=== PATIENT | female | born 1990 | race Caucasian/White ===

== ENCOUNTER 2023-09-01 15:16 | Emergency (ER) | payer MEDICARE, OTHER ==
[2023-09-01 15:35] VITALS: RESP 18
--- NOTE | 2023-09-01 16:09 | ED ---
Extremity Problem HPI - General Source: patient, RN notes reviewed Mode of arrival: wheelchair Limitations: no limitations - History of Present Illness MD Complaint: extremity pain, extremity swelling <Maryanne Flor - Last Filed: 09/01/23 16:06> - General Source: RN notes reviewed, old records reviewed Mode of arrival: wheelchair Limitations: no limitations <Walt Hobson - Last Filed: 09/06/23 20:41> - General Chief complaint: Extremity Problem,Nontraumatic Stated complaint: bilat leg edema Time Seen by Provider: 09/01/23 16:00 - History of Present Illness Initial comments: This is a 32-year-old female who presents to the emergency department for swelling in her bilateral lower extremities. States that she noticed this 5 to 6 days ago. The legs are also painful. She is currently at [facility] for rehab. Reports a history of lupus, but denies any history of cardiac problems such as congestive heart failure. Reports minor shortness of breath. Denies any chest pain. States that [facility] wanted her evaluated for any possible cardiac problems that could be causing the swelling. (Maryanne Flor) - Related Data Previous Rx's Medication Instructions Recorded Furosemide [Lasix] 40 mg PO BID #10 tablet 09/05/23 Allergies Allergy/AdvReac Type Severity Reaction Status Date / Time No Known Allergies Allergy Verified 09/01/23 15:31 Review of Systems ROS Other: All systems not noted in ROS Statement are negative. <Maryanne Flor - Last Filed: 09/01/23 16:06> ROS Other: All systems not noted in ROS Statement are negative. <Walt Hobson - Last Filed: 09/06/23 20:41> ROS Statement: Those systems with pertinent positive or pertinent negative responses have been documented in the HPI. Past Medical History Additional Past Medical History / Comment(s): lupus Past Surgical History: Section Past Psychological History: No Psychological Hx Reported Smoking Status: Current every day smoker Past Alcohol Use History: None Reported Past Drug Use History: Heroin <Maryanne Flor - Last Filed: 09/01/23 16:06> General Exam Limitations: no limitations <Maryanne Flor - Last Filed: 09/01/23 16:06> General appearance: alert, in no apparent distress Head exam: Present: atraumatic, normocephalic, normal inspection Eye exam: Present: normal appearance, PERRL, EOMI. Absent: scleral icterus, conjunctival injection, periorbital swelling ENT exam: Present: normal exam, mucous membranes moist Neck exam: Present: normal inspection. Absent: tenderness, meningismus, lymphadenopathy Respiratory exam: Present: normal lung sounds bilaterally. Absent: respiratory distress, wheezes, rales, rhonchi, stridor Cardiovascular Exam: Present: regular rate, normal rhythm, normal heart sounds. Absent: systolic murmur, diastolic murmur, rubs, gallop, clicks GI/Abdominal exam: Present: soft, normal bowel sounds. Absent: distended, tenderness, guarding, rebound, rigid Extremities exam: Present: normal inspection, full ROM, normal capillary refill. Absent: tenderness, pedal edema, joint swelling, calf tenderness Back exam: Present: normal inspection Neurological exam: Present: alert, oriented X3, CN II-XII intact Psychiatric exam: Present: normal affect, normal mood Skin exam: Present: warm, dry, intact, normal color. Absent: rash <Walt Hobson - Last Filed: 09/06/23 20:41> - General Exam Comments Initial Comments: Visual Physical Exam Vital signs reviewed General: Well-appearing, nontoxic, no acute distress. Head: Normocephalic, atraumatic Eyes: PERRLA, EOMI ENT: Airway patent Chest: Nonlabored breathing Skin: No visual rash, normal skin tone Neuro: Alert and oriented 3 Musculoskeletal: No gross abnormalities (VogleyMaryanne) Course <Walt Hobson - Last Filed: 09/06/23 20:41> Vital Signs 09/01/23 09/01/23 15:31 19:30 Temperature 98.1 F 97.8 F Pulse Rate 70 80 Respiratory 18 18 Rate Blood Pressure 143/88 134/90 O2 Sat by Pulse 99 99 Oximetry - Reevaluation(s) Reevaluation #1: Medical record is reviewed (Walt Hobson) Reevaluation #2: Patient symptoms are improved (Walt Hobson) Reevaluation #3: Patient informed of results and questions answered (Walt Hobson) Reevaluation #4: 09/01/23 17:14 Was pt. sent in by a medical professional or institution (, RAMEZ, MARKETING OPERATIONS MANAGER, urgent care, hospital, or assisted...) When possible be specific @ -no Did you speak to anyone other than the patient for history (EMS, parent, family, police, friend...)? What history was obtained from this source @ -no Did you review nursing and triage notes (agree or disagree)? Why? @ -agree Are old charts reviewed (outside hosp., previous admission, EMS record, old EKG, old radiological studies, urgent care reports/EKG's, assisted records)? Report findings @ -yes Differential Diagnosis (chest pain, altered mental status, abdominal pain women, abdominal pain men, vaginal bleeding, weakness, fever, dyspnea, syncope, headache, dizziness, GI bleed, back pain, seizure, CVA, palpatations, mental health, musculoskeletal)? @ -prior EKG interpreted by me (3pts min.). @ -yes X-rays interpreted by me (1pt min.). @ -yes negative for acute disease CT interpreted by me (1pt min.). @ -no U/S interpreted by me (1pt. min.). @ -no What testing was considered but not performed or refused? (CT, X-rays, U/S, labs)? Why? @ -none What meds were considered but not given or refused? Why? @ -none Did you discuss the management of the patient with other professionals (professionals i.e. , RAMEZ, MARKETING OPERATIONS MANAGER, lab, RT, psych nurse, social media developer, welding inspector, te acher, guest services officer, case packer and sealer)? Give summary @ -no Was smoking cessation discussed for >3mins.? @ -no Was critical care preformed (if so, how long)? @ -no Were there social determinants of health that impacted care today? How? (Homelessness, low income, unemployed, alcoholism, drug addiction, transportation, low edu. Level, literacy, decrease access to med. care, long term, rehab)? @ -none Was there de-escalation of care discussed even if they declined (Discuss DNR or withdrawal of care, Hospice)? DNR status @ -no What co-morbidities impacted this encounter? (DM, HTN, Smoking, COPD, CAD, Cancer, CVA, ARF, Chemo, Hep., AIDS, mental health diagnosis, sleep apnea, morbid obesity)? @ -none Was patient admitted / discharged? Hospital course, mention meds given and route, prescriptions, significant lab abnormalities, going to OR and other pertinent info. @ - Undiagnosed new problem with uncertain prognosis? @ -no Drug Therapy requiring intensive monitoring for toxicity (Heparin, Nitro, Insulin, Cardizem)? @ -no Were any procedures done? @ -no Diagnosis/symptom? @ - Acute, or Chronic, or Acute on Chronic? @ -Acute Uncomplicated (without systemic symptoms) or Complicated (systemic symptoms)? @ -Complicated Side effects of treatment? @ -no Exacerbation, Progression, or Severe Exacerbation? @ -exacerbation Poses a threat to life or bodily function? How? (Chest pain, [place], [place], pneumonia, PE, COPD, DKA, ARF, appy, cholecystitis, CVA, Diverticulitis, Homicidal, Suicidal, threat to staff... and all critical care pts) @ -yes (Walt Hobson) Medical Decision Making <Maryanne Flor - Last Filed: 09/01/23 16:06> - Lab Data Result diagrams: 09/01/23 16:27 09/01/23 16:27 <Walt Hobson - Last Filed: 09/06/23 20:41> - Medical Decision Making I performed the QuickNote portion of this chart. Signed Maryanne Flor PA-C. (Maryanne Flor) - Lab Data Lab Results 09/01/23 09/01/23 09/01/23 Range/Units 16:27 16:27 16:27 WBC 6.5 (3.8-10.6) k/uL RBC 4.27 (3.80-5.40) m/uL Hgb 12.6 (11.4-16.0) gm/dL Hct 37.1 (34.0-46.0) % MCV 86.8 (80.0-100.0) fL MCH 29.4 (25.0-35.0) pg MCHC 33.8 (31.0-37.0) g/dL RDW 14.3 (11.5-15.5) % Plt Count 139 L (150-450) k/uL MPV 10.2 Neutrophils % 49 % Lymphocytes % 37 % Monocytes % 6 % Eosinophils % 6 % Basophils % 1 % Neutrophils # 3.2 (1.3-7.7) k/uL Lymphocytes # 2.4 (1.0-4.8) k/uL Monocytes # 0.4 (0-1.0) k/uL Eosinophils # 0.4 (0-0.7) k/uL Basophils # 0.1 (0-0.2) k/uL Sodium 137 (137-145) mmol/L Potassium 4.4 (3.5-5.1) mmol/L Chloride 104 (98-107) mmol/L Carbon Dioxide 26 (22-30) mmol/L Anion Gap 7 mmol/L BUN 16 (7-17) mg/dL Creatinine 0.52 (0.52-1.04) mg/dL Est GFR (CKD-EPI)AfAm >90 (>60 ml/min/1.73 sqM) Est GFR (CKD-EPI)NonAf >90 (>60 ml/min/1.73 sqM) Glucose 130 H (74-99) mg/dL Calcium 9.1 (8.4-10.2) mg/dL Total Bilirubin 0.4 (0.2-1.3) mg/dL AST 37 H (14-36) U/L ALT 21 (4-34) U/L Alkaline Phosphatase 78 (38-126) U/L Troponin I <0.012 (0.000-0.034) ng/mL NT-Pro-B Natriuret Pep 116 pg/mL Total Protein 7.3 (6.3-8.2) g/dL Albumin 4.1 (3.5-5.0) g/dL TSH 16.700 H (0.465-4.680) mIU/L Free T4 0.67 L (0.78-2.19) ng/dL Urine Color Urine Appearance (Clear) Urine pH (5.0-8.0) Ur Specific Hagerman (1.001-1.035) Urine Protein (Negative) Urine Glucose (UA) (Negative) Urine Ketones (Negative) Urine Blood (Negative) Urine Nitrite (Negative) Urine Bilirubin (Negative) Urine Urobilinogen (<2.0) mg/dL Ur Leukocyte Esterase (Negative) Urine HCG, Qual (Not Detectd) 09/01/23 09/01/23 Range/Units 17:30 17:30 WBC (3.8-10.6) k/uL RBC (3.80-5.40) m/uL Hgb (11.4-16.0) gm/dL Hct (34.0-46.0) % MCV (80.0-100.0) fL MCH (25.0-35.0) pg MCHC (31.0-37.0) g/dL RDW (11.5-15.5) % Plt Count (150-450) k/uL MPV Neutrophils % % Lymphocytes % % Monocytes % % Eosinophils % % Basophils % % Neutrophils # (1.3-7.7) k/uL Lymphocytes # (1.0-4.8) k/uL Monocytes # (0-1.0) k/uL Eosinophils # (0-0.7) k/uL Basophils # (0-0.2) k/uL Sodium (137-145) mmol/L Potassium (3.5-5.1) mmol/L Chloride (98-107) mmol/L Carbon Dioxide (22-30) mmol/L Anion Gap mmol/L BUN (7-17) mg/dL Creatinine (0.52-1.04) mg/dL Est GFR (CKD-EPI)AfAm (>60 ml/min/1.73 sqM) Est GFR (CKD-EPI)NonAf (>60 ml/min/1.73 sqM) Glucose (74-99) mg/dL Calcium (8.4-10.2) mg/dL Total Bilirubin (0.2-1.3) mg/dL AST (14-36) U/L ALT (4-34) U/L Alkaline Phosphatase (38-126) U/L Troponin I (0.000-0.034) ng/mL NT-Pro-B Natriuret Pep pg/mL Total Protein (6.3-8.2) g/dL Albumin (3.5-5.0) g/dL TSH (0.465-4.680) mIU/L Free T4 (0.78-2.19) ng/dL Urine Color Colorless Urine Appearance Clear (Clear) Urine pH 7.5 (5.0-8.0) Ur Specific Hagerman 1.011 (1.001-1.035) Urine Protein Negative (Negative) Urine Glucose (UA) Negative (Negative) Urine Ketones Negative (Negative) Urine Blood Negative (Negative) Urine Nitrite Negative (Negative) Urine Bilirubin Negative (Negative) Urine Urobilinogen <2.0 (<2.0) mg/dL Ur Leukocyte Esterase Negative (Negative) Urine HCG, Qual Not Detected (Not Detectd) Disposition <Maryanne Flor - Last Filed: 09/01/23 16:06> Is patient prescribed a controlled substance at d/c from ED?: No Time of Disposition: 19:00 <Walt Hobson - Last Filed: 09/06/23 20:41> Clinical Impression: Leg edema Disposition: HOME SELF-CARE Condition: Good Instructions (If sedation given, give patient instructions): Leg Edema (ED) Prescriptions: Furosemide [Lasix] 40 mg PO BID #10 tablet Referrals: None,Stated [Primary Care Provider] - 1-2 days
--- NOTE | 2023-09-01 16:21 | XR ---
EXAMINATION TYPE: XR chest 2V DATE OF EXAM: 09/01/2023 4:18 PM CLINICAL INDICATION:Female, 32 years old with history of ANNA; [facility] COMPARISON: None TECHNIQUE: XR chest 2V Frontal and lateral views of the chest. FINDINGS: Lungs/Pleura: There is no evidence of pleural effusion, focal consolidation, or pneumothorax. Pulmonary vascularity: Unremarkable. Heart/mediastinum: Cardiomediastinal silhouette is unremarkable. Musculoskeletal: No acute osseous pathology. Other findings: None IMPRESSION: No acute cardiopulmonary disease/process.
[2023-09-01 17:29] LABS: ALT 21 U/L (4-34); African American GFR (CKD) >90 (>60 ml/min/1.73 sqM); Albumin 4.1 g/dL (3.5-5.0); Anion Gap 7 mmol/L; Blood Urea Nitrogen 16 mg/dL (7-17); Calcium 9.1 mg/dL (8.4-10.2); Carbon Dioxide 26 mmol/L (22-30); Chloride 104 mmol/L (98-107); Glucose 130 mg/dL (74-99); Non-African American GFR(CKD) >90 (>60 ml/min/1.73 sqM); Sodium 137 mmol/L (137-145); Total Bilirubin 0.4 mg/dL (0.2-1.3); Total Protein 7.3 g/dL (6.3-8.2)
[2023-09-01 17:33] LABS: Basophils # (A) 0.1 k/uL (0-0.2); Basophils % (A) 1 %; Eosinophils # (A) 0.4 k/uL (0-0.7); Eosinophils % (A) 6 %; HCT 37.1 % (34.0-46.0); HGB 12.6 gm/dL (11.4-16.0); Lymphocytes # (A) 2.4 k/uL (1.0-4.8); Lymphocytes % (A) 37 %; MCH 29.4 pg (25.0-35.0); MCHC 33.8 g/dL (31.0-37.0); MCV 86.8 fL (80.0-100.0); Mean Platelet Volume 10.2; Monocytes # (A) 0.4 k/uL (0-1.0); Monocytes % (A) 6 %; Neutrophils # (A) 3.2 k/uL (1.3-7.7); Neutrophils % (A) 49 %; Platelet Count 139 k/uL (150-450); RBC 4.27 m/uL (3.80-5.40); RDW 14.3 % (11.5-15.5); WBC 6.5 k/uL (3.8-10.6)
[2023-09-01 17:37] LABS: NT-Pro-B-Type Natriuretic Pept 116 pg/mL
[2023-09-01 18:25] LABS: Appearance,Urine Clear (Clear); Bilirubin,Urine Negative (Negative); Blood,Urine Negative (Negative); Color,Urine Colorless; Glucose,Urine (UA) Negative (Negative); Ketones,Urine Negative (Negative); Leukocyte Esterase,Urine Negative (Negative); Nitrite,Urine Negative (Negative); PH, Urine 7.5 (5.0-8.0); Protein,Urine Negative (Negative); Specific Gravity,Urine 1.011 (1.001-1.035); Urobilinogen,Urine <2.0 mg/dL (<2.0)
[2023-09-01 19:00] LABS: T4, Free (Free Thyroxine) 0.67 ng/dL (0.78-2.19)
[2023-09-01 19:04] LABS: AST 37 U/L (14-36); Alkaline Phosphatase 78 U/L (38-126); Potassium 4.4 mmol/L (3.5-5.1)
[2023-09-01 19:51] VITALS: BP 134/90; PULSE 80; TEMP 97.8
== END 2023-09-01 19:36 | disposition home or self-care (01) ==
LOC: EC 15:16
DX: R60.0 Localized edema (principal); F17.200 Nicotine dependence, unspecified, uncomplicated; F11.90 Opioid use, unspecified, uncomplicated
CPT/HCPCS: 36415; 71046; 80053; 81003; 81025; 83880; 84439; 84443; 84484; 85025; 93005; 99284

== ENCOUNTER 2024-05-07 20:04 | Emergency (ER) | payer MEDICARE, OTHER ==
[2024-05-07 20:11] VITALS: RESP 16; TEMP 98.3
--- NOTE | 2024-05-07 20:53 | ED ---
Skin/Abscess/FB HPI - General Chief complaint: Skin/Abscess/Foreign Body Stated complaint: L Leg Abcess, Migraine Time Seen by Provider: 05/07/24 20:50 Source: patient, RN notes reviewed Mode of arrival: ambulatory Limitations: no limitations - History of Present Illness Initial comments: 33-year-old female presenting to the ER with chief complaint of abscess on left thigh x 2 days. States the abscess has been growing rapidly in size for the past 2 days and is very painful. Patient states she has a history of lupus and is very concerned about the infection as she states she has a history of hospitalizations for septic abscesses. Denies fever, chills, vomiting. Also is requesting the Benadryl for a headache. - Related Data Previous Rx's Medication Instructions Recorded Furosemide [Lasix] 40 mg PO BID #10 tablet 09/05/23 HYDROcodone/APAP 5-325MG [Trade 5] 1 each PO Q6HR PRN #12 tab 05/07/24 clindamycin HCL 300 mg PO QID 7 Days #28 cap 05/07/24 Allergies Allergy/AdvReac Type Severity Reaction Status Date / Time No Known Allergies Allergy Verified 05/07/24 20:11 Review of Systems ROS Statement: Those systems with pertinent positive or pertinent negative responses have been documented in the HPI. ROS Other: All systems not noted in ROS Statement are negative. Past Medical History Additional Past Medical History / Comment(s): lupus Past Surgical History: Section Past Psychological History: Anxiety, Bipolar, Depression Smoking Status: Current every day smoker Past Alcohol Use History: None Reported Past Drug Use History: None Reported General Exam Limitations: no limitations General appearance: alert, in no apparent distress Head exam: Present: atraumatic, normocephalic, normal inspection Neurological exam: Present: alert, oriented X3 Psychiatric exam: Present: normal affect, normal mood Skin exam: Present: warm, dry, intact, normal color, other (5 x 5 cm indurated abscess present on lateral aspect of left thigh. No active drainage. No fluctuant masses) Course Vital Signs 05/07/24 20:09 Temperature 98.3 F Pulse Rate 108 H Respiratory 16 Rate Blood Pressure 132/90 O2 Sat by Pulse 98 Oximetry Medical Decision Making - Medical Decision Making Was pt. sent in by a medical professional or institution (, PA, CRANE HOOKER, urgent care, hospital, or fci...) When possible be specific @ -No Did you speak to anyone other than the patient for history (EMS, parent, family, police, friend...)? What history was obtained from this source @ -No Did you review nursing and triage notes (agree or disagree)? Why? @ -I reviewed and agree with nursing and triage notes Were old charts reviewed (outside hosp., previous admission, EMS record, old EKG, old radiological studies, urgent care reports/EKG's, fci records)? Report findings @ -No old charts were reviewed Differential Diagnosis (chest pain, altered mental status, abdominal pain women, abdominal pain men, vaginal bleeding, weakness, fever, dyspnea, syncope, headache, dizziness, GI bleed, back pain, seizure, CVA, palpatations, mental health, musculoskeletal)? @ -Differential Musculoskeletal Abscess, muscular strain, contusion, ligament sprain, fracture, arthritis, septic arthritis, bursitis, cellulitis, muscle spasm, nerve compression, DVT, arterial occlusion, herpes zoster, electrolyte abnormality, tumor.... This is not meant to be in all inclusive list EKG interpreted by me (3pts min.). @ -None X-rays interpreted by me (1pt min.). @ -None done CT interpreted by me (1pt min.). @ -None done U/S interpreted by me (1pt. min.). @ -None done What testing was considered but not performed or refused? (CT, X-rays, U/S, labs)? Why? @ -None What meds were considered but not given or refused? Why? @ -None Did you discuss the management of the patient with other professionals (professionals i.e. , PA, CRANE HOOKER, lab, RT, psych nurse, certified social workers in health care, tower excavator operator, teacher, chief security and safety officer, comp field case manager)? Give summary @ -No Was smoking cessation discussed for >3mins.? @ -No Was critical care preformed (if so, how long)? @ -No Were there social determinants of health that impacted care today? How? (Homelessness, low income, unemployed, alcoholism, drug addiction, transportation, low edu. Level, literacy, decrease access to med. care, senior living, r ehab)? @ -No Was there de-escalation of care discussed even if they declined (Discuss DNR or withdrawal of care, Hospice)? DNR status @ -No What co-morbidities impacted this encounter? (DM, HTN, Smoking, COPD, CAD, Cancer, CVA, ARF, Chemo, Hep., AIDS, mental health diagnosis, sleep apnea, morbid obesity)? @ -None Was patient admitted / discharged? Hospital course, mention meds given and route, prescriptions, significant lab abnormalities, going to OR and other pertinent info. @ -Discharge. This is a 33-year-old female with history of lupus presenting to the ER with chief complaint of abscess on left thigh x 2 days. Patient is mildly tachycardic, afebrile. Upon physical examination, there is a 5 cm indurated abscess present on left thigh. No active drainage. Patient was provided with IV fluids and analgesics. Blood cultures were taken. Lab work including CBC, CMP, lactic acid remarkable for mildly elevated white blood cell count of 11. Patient was given dose of IV Rocephin. Ultrasound was performed on abscess which revealed no drainable pocket of fluid. Discussed diagnosis of abscess with patient. As patient is afebrile, tolerating orals, white blood cell count is 11, we will trial oral clindamycin paired with warm compresses and Epsom salt baths. Advised patient to return to ER with new or worsening symptoms, patient shows understanding and agrees to plan. Case was discussed with my ED attending Dr. Villaseñor. Patient stable at time of discharge. Undiagnosed new problem with uncertain prognosis? @ -No Drug Therapy requiring intensive monitoring for toxicity (Heparin, Nitro, Insulin, Cardizem)? @ -No Were any procedures done? @ -No Diagnosis/symptom? @ -Abscess left leg Acute, or Chronic, or Acute on Chronic? @ -Acute Uncomplicated (without systemic symptoms) or Complicated (systemic symptoms)? @ -Uncomplicated Side effects of treatment? @ -No Exacerbation, Progression, or Severe Exacerbation? @ -No Poses a threat to life or bodily function? How? (Chest pain, [place], [place], pneumonia, PE, COPD, DKA, ARF, appy, cholecystitis, CVA, Diverticulitis, Homicidal, Evans icidal, threat to staff... and all critical care pts) @ -Not at this time - Lab Data Result diagrams: 05/07/24 21:37 05/07/24 21:37 Lab Results 05/07/24 05/07/24 05/07/24 Range/Units 21:37 21:37 21:37 WBC 11.2 H (3.8-10.6) k/uL RBC 4.64 (3.80-5.40) m/uL Hgb 12.5 (11.4-16.0) gm/dL Hct 38.0 (34.0-46.0) % MCV 81.8 (80.0-100.0) fL MCH 26.9 (25.0-35.0) pg MCHC 32.9 (31.0-37.0) g/dL RDW 15.7 H (11.5-15.5) % Plt Count 229 (150-450) k/uL MPV 7.1 Neutrophils % 61 % Lymphocytes % 28 % Monocytes % 5 % Eosinophils % 4 % Basophils % 0 % Neutrophils # 6.8 (1.3-7.7) k/uL Lymphocytes # 3.1 (1.0-4.8) k/uL Monocytes # 0.6 (0-1.0) k/uL Eosinophils # 0.4 (0-0.7) k/uL Basophils # 0.1 (0-0.2) k/uL Sodium 137 (137-145) mmol/L Potassium 3.7 (3.5-5.1) mmol/L Chloride 107 (98-107) mmol/L Carbon Dioxide 22 (22-30) mmol/L Anion Gap 8 mmol/L BUN 9 (7-17) mg/dL Creatinine 0.61 (0.52-1.04) mg/dL Est GFR (CKD-EPI)AfAm >90 (>60 ml/min/1.73 sqM) Est GFR (CKD-EPI)NonAf >90 (>60 ml/min/1.73 sqM) Glucose 159 H (74-99) mg/dL Plasma Lactic Acid Omero 1.3 (0.7-2.0) mmol/L Calcium 9.6 (8.4-10.2) mg/dL Total Bilirubin 0.4 (0.2-1.3) mg/dL AST 19 (14-36) U/L ALT 11 (4-34) U/L Alkaline Phosphatase 62 (38-126) U/L Total Protein 7.1 (6.3-8.2) g/dL Albumin 4.1 (3.5-5.0) g/dL Disposition Clinical Impression: Abscess of left thigh Disposition: HOME SELF-CARE Condition: Stable Instructions (If sedation given, give patient instructions): Abscess (ED) Additional Instructions: Take Clindamycin as prescribed 4 times daily for 7 days. Use warm compresses 3 times daily. Take Trade as needed for pain. You may take Trade with anti-inflammatories such as ibuprofen or Aleve. Please return to the Emergency Department if symptoms worsen or any other concerns. Prescriptions: clindamycin HCL 300 mg PO QID 7 Days #28 cap HYDROcodone/APAP 5-325MG [Trade 5] 1 each PO Q6HR PRN #12 tab PRN Reason: Pain Is patient prescribed a controlled substance at d/c from ED?: Yes When asked, does pt state using other controlled substances?: No If prescribed controlled substance>3 days was MAPS reviewed?: Prescribed <3 Days If opioid is for acute pain is fill amount 7 days or less?: Yes Referrals: None,Stated [Primary Care Provider] - 1-2 days Time of Disposition: 23:54
[2024-05-07] MEDS: diphenhydrAMINE 50 MG/ML 1 ML VIAL IVP STA (22:23)
[2024-05-07] MEDS: KETOROLAC 15 MG/ML 1 ML VIAL IVP STA (22:24)
[2024-05-07] MEDS: SODIUM CHLORIDE 0.9% 1,000 ML IV STA (22:24)
[2024-05-07 22:43] LABS: Basophils # (A) 0.1 k/uL (0-0.2); Basophils % (A) 0 %; Eosinophils # (A) 0.4 k/uL (0-0.7); Eosinophils % (A) 4 %; HGB 12.5 gm/dL (11.4-16.0); Lymphocytes # (A) 3.1 k/uL (1.0-4.8); Lymphocytes % (A) 28 %; MCH 26.9 pg (25.0-35.0); MCHC 32.9 g/dL (31.0-37.0); MCV 81.8 fL (80.0-100.0); Mean Platelet Volume 7.1; Monocytes # (A) 0.6 k/uL (0-1.0); Monocytes % (A) 5 %; Neutrophils # (A) 6.8 k/uL (1.3-7.7); Neutrophils % (A) 61 %; Platelet Count 229 k/uL (150-450); RBC 4.64 m/uL (3.80-5.40); RDW 15.7 % (11.5-15.5); WBC 11.2 k/uL (3.8-10.6)
[2024-05-07 23:03] LABS: ALT 11 U/L (4-34); AST 19 U/L (14-36); African American GFR (CKD) >90 (>60 ml/min/1.73 sqM); Albumin 4.1 g/dL (3.5-5.0); Alkaline Phosphatase 62 U/L (38-126); Anion Gap 8 mmol/L; Blood Urea Nitrogen 9 mg/dL (7-17); Calcium 9.6 mg/dL (8.4-10.2); Carbon Dioxide 22 mmol/L (22-30); Chloride 107 mmol/L (98-107); Glucose 159 mg/dL (74-99); Non-African American GFR(CKD) >90 (>60 ml/min/1.73 sqM); Potassium 3.7 mmol/L (3.5-5.1); Sodium 137 mmol/L (137-145); Total Bilirubin 0.4 mg/dL (0.2-1.3); Total Protein 7.1 g/dL (6.3-8.2)
[2024-05-08] MEDS: ACETAMINOPHEN TAB 500 MG TAB PO STA
[2024-05-08] MEDS: KETOROLAC 15 MG/ML 1 ML VIAL IVP STA (00:02)
[2024-05-08] MEDS: METOCLOPRAMIDE 5 MG/ML 2 ML VIAL IVP STA (00:02)
[2024-05-08 00:08] VITALS: BP 124/87; PULSE 80
== END 2024-05-08 00:07 | disposition home or self-care (01) ==
LOC: EC 20:04
CPT/HCPCS: 36415; 80053; 83605; 85025; 87040; 96365; 96366; 96375; 96376; 99284

== ENCOUNTER 2024-08-20 12:56 | Emergency (ER) | payer MEDICARE, OTHER ==
[2024-08-20 13:38] VITALS: PULSE 88
--- NOTE | 2024-08-20 14:05 | XR ---
EXAMINATION TYPE: XR chest 2V DATE OF EXAM: 08/20/2024 1:52 PM COMPARISON: Chest radiographs from 09/01/2023 CLINICAL INDICATION: Female, 33 years old with history of Pain; TECHNIQUE: XR chest 2V Frontal and lateral views of the chest. FINDINGS: Lungs/Pleura: There is no evidence of pleural effusion, focal consolidation, or pneumothorax. Pulmonary vascularity: Unremarkable. Heart/mediastinum: Cardiomediastinal silhouette is unremarkable. Musculoskeletal: No acute osseous pathology. IMPRESSION: No acute cardiopulmonary disease/process. [facility], , 08/20/2024 2:02 PM
--- NOTE | 2024-08-20 15:18 | ED ---
General Adult HPI - General Chief complaint: Chest Pain Stated complaint: rt side chest/back pain Time Seen by Provider: 08/20/24 15:00 Source: patient, RN notes reviewed, old records reviewed Mode of arrival: ambulatory Limitations: no limitations - History of Present Illness Initial comments: This is a 33-year-old female who presents to the emergency department complaining of some right-sided chest pain and into the back. Patient states has been ongoing since 2 days ago. Patient is she has a dry cough. Patient states that she has had no anterior chest pain no difficulty breathing no shortness of breath. Patient denies any diaphoretic episode. Patient denies any abdominal pain patient has nausea vomiting diarrhea. Patient denies any recent fever chills. - Related Data Previous Rx's Medication Instructions Recorded Furosemide [Lasix] 40 mg PO BID #10 tablet 09/05/23 clindamycin HCL 300 mg PO QID 7 Days #28 cap 05/07/24 HYDROcodone/APAP 5-325MG [[place] 5] 1 each PO Q6HR PRN #12 tab 05/10/24 Benzonatate [Tessalon Perle] 200 mg PO TID PRN #20 capsule 08/21/24 Ketorolac [Toradol] 10 mg PO Q6HR PRN #15 tab 08/21/24 Nirmatrelvir/Ritonavir [Paxlovid 1 pack PO BID 5 Days #30 tab 08/21/24 300-100 mg Dose Pack] Ondansetron Odt [Zofran Odt] 4 mg PO Q8HR PRN #15 tab 08/21/24 Allergies Allergy/AdvReac Type Severity Reaction Status Date / Time No Known Allergies Allergy Verified 08/20/24 13:37 Review of Systems ROS Statement: Those systems with pertinent positive or pertinent negative responses have been documented in the HPI. ROS Other: All systems not noted in ROS Statement are negative. Past Medical History Additional Past Medical History / Comment(s): lupus History of Any Multi-Drug Resistant Organisms: None Reported Past Surgical History: Section Past Psychological History: Anxiety, Bipolar, Depression Smoking Status: Current every day smoker Past Alcohol Use History: None Reported Past Drug Use History: None Reported General Exam - General Exam Comments Initial Comments: GENERAL: Patient is well-developed and well-nourished. Patient is nontoxic and well- hydrated and is in mild distress. ENT: Neck is soft and supple. No significant lymphadenopathy is noted. Oropharynx is clear. Moist mucous membranes. Neck has full range of motion without eliciting any pain. EYES: The sclera were anicteric and conjunctiva were pink and moist. Extraocular movements were intact and pupils were equal round and reactive to light. Eyelids were unremarkable. PULMONARY: Unlabored respirations. Good breath sounds bilaterally. No audible rales rhonchi or wheezing was noted. CARDIOVASCULAR: There is a regular rate and rhythm without any murmurs gallops or rubs. ABDOMEN: Soft and nontender with normal bowel sounds. SKIN: Skin is clear with no lesions or rashes and otherwise unremarkable. NEUROLOGIC: Patient is alert and oriented x3. Cranial nerves II through XII are grossly in tact. Motor and sensory are also intact. Normal speech, volume and content. Symmetrical smile. MUSCULOSKELETAL: Normal extremities with adequate strength and full range of motion. LYMPHATICS: No significant lymphadenopathy is noted PSYCHIATRIC: Normal psychiatric evaluation. Limitations: no limitations Course Vital Signs 08/20/24 08/20/24 13:35 15:42 Temperature 98.7 F 98 F Pulse Rate 88 88 Respiratory 20 18 Rate Blood Pressure 132/78 125/88 O2 Sat by Pulse 97 98 Oximetry Medical Decision Making - Medical Decision Making EKG is interpreted by myself. EKG shows sinus rhythm at 96 bpm VA was 153 QRS is 85 QT interval 347 QTc is 400. Patient's EKG shows no ST segment elevation or depression. Was pt. sent in by a medical professional or institution (, PA, GATE OPERATOR, urgent care, hospital, or [facility]...) When possible be specific @ -No Did you speak to anyone other than the patient for history (EMS, parent, family, police, friend...)? What history was obtained from this source @ -No Did you review nursing and triage notes (agree or disagree)? Why? @ -I reviewed and agree with nursing and triage notes Were old charts reviewed (outside hosp., previous admission, EMS record, old EKG, old radiological studies, urgent care reports/EKG's, [facility] records)? Report findings @ -No old charts were reviewed Differential Diagnosis? @ -URI, COVID, influenza, RSV, pneumonia, chest wall pain, this is not an all- inclusive list EKG interpreted by me (3pts min.). @ -As above X-rays interpreted by me (1pt min.). @ -Chest x-ray showed no acute abnormality CT interpreted by me (1pt min.). @ -None done U/S interpreted by me (1pt. min.). @ -None done What testing was considered but not performed or refused? (CT, X-rays, U/S, labs)? Why? @ -None What meds were considered but not given or refused? Why? @ -None Did you discuss the management of the patient with other professionals (professionals i.e. , PA, GATE OPERATOR, lab, RT, psych nurse, hospital social worker, stereoptic projection topographer, teacher, complaint evaluation officer, case reviewer)? Give summary @ -No Was smoking cessation discussed for >3mins.? @ -No Was critical care preformed (if so, how long)? @ -No Were there social determinants of health that impacted care today? How? (Homelessness, low income, unemployed, alcoholism, drug addiction, transportation, low edu. Level, literacy, decrease access to med. care, [facility], rehab)? @ -No Was there de-escalation of care discussed even if they declined (Discuss DNR or withdrawal of care, Hospice)? DNR status @ -No What co-morbidities impacted this encounter? (DM, HTN, Smoking, COPD, CAD, Cancer, CVA, ARF, Chemo, Hep., AIDS, mental health diagnosis, sleep apnea, morbid obesity)? @ -None Was patient admitted / discharged? Hospital course, mention meds given and route, prescriptions, significant lab abnormalities, going to OR and other pertinent info. @ -Patient's lab work showed that she had COVID. Patient's pain on the right lateral ribs was reproducible with palpation she thinks she may have injured it with coughing. Undiagnosed new problem with uncertain prognosis? @ -No Drug Therapy requiring intensive monitoring for toxicity (Heparin, Nitro, Insulin, Cardizem)? @ -No Were any procedures done? @ -No Diagnosis/symptom? @ -COVID Acute, or Chronic, or Acute on Chronic? @ -Acute Uncomplicated (without systemic symptoms) or Complicated (systemic symptoms)? @ -Complicated Side effects of treatment? @ -No Exacerbation, Progression, or Severe Exacerbation? @ -No Poses a threat to life or bodily function? How? (Chest pain, [place], [place], pneumonia, PE, COPD, DKA, ARF, appy, cholecystitis, CVA, Diverticulitis, Homicidal, Suicidal, threat to staff... and all critical care pts) @ -No - Lab Data Lab Results 08/20/24 Range/Units 13:40 Influenza Type A (PCR) Not Detected (Not Detectd) Influenza Type B (PCR) Not Detected (Not Detectd) RSV (PCR) Not Detected (Not Detectd) SARS-CoV-2 (PCR) Detected A (Not Detectd) Disposition Clinical Impression: COVID Disposition: HOME SELF-CARE Condition: Good Instructions (If sedation given, give patient instructions): COVID-19 (Coronavirus Disease 2019) (ED) Is patient prescribed a controlled substance at d/c from ED?: No Referrals: None,Stated [Primary Care Provider] - 1-2 days Time of Disposition: 15:34
[2024-08-20] MEDS: IBUPROFEN 600 MG TAB PO STA (15:27)
[2024-08-20 15:42] VITALS: BP 125/88; RESP 18; TEMP 98
== END 2024-08-20 15:43 | disposition home or self-care (01) ==
LOC: EC 12:56
DX: U07.1 COVID-19 (principal); F17.200 Nicotine dependence, unspecified, uncomplicated
CPT/HCPCS: 71046; 87636; 93005; 99285

== ENCOUNTER 2024-08-20 22:18 | Emergency (ER) | payer MEDICARE, OTHER ==
[2024-08-20 22:29] VITALS: RESP 18; TEMP 98.7
[2024-08-20] MEDS: KETOROLAC 15 MG/ML 1 ML VIAL IVP STA (23:05)
[2024-08-20] MEDS: MORPHINE SULFATE 4 MG/ML SYRINGE IVP STA (23:06)
[2024-08-20] MEDS: ONDANSETRON 4 MG/2 ML VIAL IVP STA (23:07)
--- NOTE | 2024-08-20 23:07 | ED ---
Abdominal Pain HPI - General Chief Complaint: Shortness of Breath Stated Complaint: Difficulty Breathing, Chest Pain Time Seen by Provider: 08/20/24 22:23 Source: patient, EMS, RN notes reviewed Mode of arrival: EMS Limitations: no limitations - History of Present Illness Initial Comments: This is a 33-year-old female who presents to the emergency department for abdominal pain. Patient has been experiencing URI symptoms with the shortness of breath for the last couple of days. She was evaluated here earlier today and tested positive for COVID. States that a few hours ago she started developing right upper quadrant pain radiating into her back. She does not feel like this is in her rib cage and is more so in her abdomen. Reports associated nausea and vomiting. Denies any changes in bowel or bladder habits. She is concerned that this pain may be related to something else as opposed to COVID. Denies any history of gallbladder problems. MD Complaint: abdominal pain - Related Data Previous Rx's Medication Instructions Recorded Furosemide [Lasix] 40 mg PO BID #10 tablet 09/05/23 clindamycin HCL 300 mg PO QID 7 Days #28 cap 05/07/24 HYDROcodone/APAP 5-325MG [[place] 5] 1 each PO Q6HR PRN #12 tab 05/10/24 Benzonatate [Tessalon Perle] 200 mg PO TID PRN #20 capsule 08/21/24 Ketorolac [Toradol] 10 mg PO Q6HR PRN #15 tab 08/21/24 Nirmatrelvir/Ritonavir [Paxlovid 1 pack PO BID 5 Days #30 tab 08/21/24 300-100 mg Dose Pack] Ondansetron Odt [Zofran Odt] 4 mg PO Q8HR PRN #15 tab 08/21/24 Allergies Allergy/AdvReac Type Severity Reaction Status Date / Time No Known Allergies Allergy Verified 08/20/24 13:37 Review of Systems ROS Statement: Those systems with pertinent positive or pertinent negative responses have been documented in the HPI. ROS Other: All systems not noted in ROS Statement are negative. Past Medical History Additional Past Medical History / Comment(s): lupus History of Any Multi-Drug Resistant Organisms: None Reported Past Surgical History: Section Past Psychological History: Anxiety, Bipolar, Depression Smoking Status: Current every day smoker Past Alcohol Use History: None Reported Past Drug Use History: None Reported General Exam Limitations: no limitations General appearance: alert, in no apparent distress Head exam: Present: atraumatic, normocephalic, normal inspection Respiratory exam: Present: normal lung sounds bilaterally. Absent: respiratory distress, wheezes, rales, rhonchi, stridor Cardiovascular Exam: Present: regular rate, normal rhythm, normal heart sounds. Absent: systolic murmur, diastolic murmur, rubs, gallop, clicks GI/Abdominal exam: Present: soft, tenderness (RUQ), normal bowel sounds. Absent: distended Neurological exam: Present: alert, oriented X3, CN II-XII intact Psychiatric exam: Present: normal affect, normal mood Skin exam: Present: warm, dry, intact, normal color. Absent: rash Course Vital Signs 08/20/24 22:21 Temperature 98.7 F Pulse Rate 83 Respiratory 18 Rate Blood Pressure 115/79 O2 Sat by Pulse 99 Oximetry Medical Decision Making - Medical Decision Making This is a 33-year-old female who presents to the emergency department for abdominal pain. Was pt. sent in by a medical professional or institution? @ -No Did you speak to anyone other than the patient for history? @ -No Did you review nursing and triage notes? @ -Yes, and I agree, it is accurate with regards to the patient's symptoms. Were old charts reviewed? @ -No Differential Diagnosis? @ -Differential Abdominal Pain Women: Appendicitis, Cholecystitis, diverticulosis, ischemic bowel, pancreatitis, hepatitis, UTI, gastroenteritis, AAA, incarcerated hernia, bowel obstruction, constipation, inflammatory bowel, hepatitis, peptic ulcer disease, splenic infarction, perforated viscus, vulvitis, ovarian torsion, PID, kidney stone, placenta abruption, this is not meant to be an all-inclusive list EKG interpreted by me (3pts min.)? @ -Not obtained X-rays interpreted by me (1pt min.)? @ -Not obtained CT interpreted by me (1pt min.)? @ -CTA of the chest obtained. My interpretation identifies no evidence of a pulmonary embolus. U/S interpreted by me (1pt. min.)? @ -Gallbladder ultrasound obtained. My interpretation identifies no evidence of gallbladder wall thickening. What testing was considered but not performed? (CT, X-rays, U/S, labs)? Why? @ -None What meds were considered but not given? Why? @ -None Did you discuss the management of the patient with other professionals? @ -No Did you reconcile home meds? @ -No Was smoking cessation discussed for >3mins.? @ -No Was critical care preformed (if so, how long)? @ -No Were there social determinants of health that impacted care today? How? (Homelessness, low income, unemployed, alcoholism, drug addiction, transportation, low edu. Level, literacy, decrease access to med. care, longterm, rehab)? @ -No Was there de-escalation of care discussed even if they declined? (Discuss DNR or withdrawal of care, Hospice)? @ -No What co-morbidities impacted this encounter? (DM, HTN, Smoking, COPD, CAD, Cancer, CVA, Hep., AIDS, mental health diagnosis, sleep apnea, morbid obesity)? @ -Lupus Was patient admitted / discharged? @ -Discharged. Patient was evaluated here earlier this evening and tested positive for COVID. Her pain was more so in the right upper quadrant and we proceeded with further evaluation of other pathologies contributing to her symptoms, in the event it was unrelated to the COVID. Lab work demonstrates an elevated D-dimer of 0.92 and is otherwise unremarkable. Given the location of her pain and elevated D-dimer, CTA of the chest was obtained. No evidence of a pulmonary embolus was identified. We also obtained a gallbladder ultrasound. She was found to have cholelithiasis with an enlarged gallbladder. However, no evidence of gallbladder wall thickening or pericholecystic fluid was identified. Symptoms likely related to biliary colic. Pain was managed in the emergency department. She did request treatment for the COVID as well. Prescription for Paxlovid and Tessalon Perles provided for the COVID-19. Toradol and Zofran prescribed for any additional episodes of biliary colic. Advised she follow a bland and low-fat diet in the meantime to reduce the risk of symptom recurrence. Information for follow-up with general surgery provided as well. Patient discharged home in stable condition. Case discussed with ED attending Dr. Hobson. Return precautions reviewed in depth, the patient is instructed to return to the emergency department with any new, worsening, or concerning symptoms. Patient verbalized understanding. Undiagnosed new problem with uncertain prognosis? @ -None Drug Therapy requiring intensive monitoring for toxicity (Heparin, Nitro, Insulin, Cardizem)? @ -None Were any procedures done? @ -None Diagnosis/symptom? @ -Biliary colic, cholelithiasis, COVID-19 Acute, or Chronic, or Acute on Chronic? @ -Acute Uncomplicated (without systemic symptoms) or Complicated (systemic symptoms)? @ -Uncomplicated Side effects of treatment? @ -None Exacerbation, Progression, or Severe Exacerbation] @ -Not applicable Poses a threat to life or bodily function? @ -No - Lab Data Result diagrams: 08/20/24 22:56 08/20/24 22:56 Lab Results 08/20/24 08/20/24 08/20/24 Range/Units 22:56 22:56 22:56 WBC 7.6 (3.8-10.6) k/uL RBC 4.75 (3.80-5.40) m/uL Hgb 13.6 (11.4-16.0) gm/dL Hct 40.0 (34.0-46.0) % MCV 84.1 (80.0-100.0) fL MCH 28.7 (25.0-35.0) pg MCHC 34.1 (31.0-37.0) g/dL RDW 13.2 (11.5-15.5) % Plt Count 198 (150-450) k/uL MPV 6.8 Neutrophils % 61 % Lymphocytes % 26 % Monocytes % 6 % Eosinophils % 5 % Basophils % 1 % Neutrophils # 4.6 (1.3-7.7) k/uL Lymphocytes # 2.0 (1.0-4.8) k/uL Monocytes # 0.5 (0-1.0) k/uL Eosinophils # 0.4 (0-0.7) k/uL Basophils # 0.0 (0-0.2) k/uL D-Dimer 0.92 H (<0.60) mg/L FEU Sodium 138 (137-145) mmol/L Potassium 3.8 (3.5-5.1) mmol/L Chloride 103 (98-107) mmol/L Carbon Dioxide 24 (22-30) mmol/L Anion Gap 11 mmol/L BUN 6 L (7-17) mg/dL Creatinine 0.58 (0.52-1.04) mg/dL Est GFR (CKD-EPI)AfAm >90 (>60 ml/min/1.73 sqM) Est GFR (CKD-EPI)NonAf >90 (>60 ml/min/1.73 sqM) Glucose 173 H (74-99) mg/dL Plasma Lactic Acid [place] (0.7-2.0) mmol/L Calcium 9.0 (8.4-10.2) mg/dL Total Bilirubin 0.5 (0.2-1.3) mg/dL AST 29 (14-36) U/L ALT 16 (4-34) U/L Alkaline Phosphatase 84 (38-126) U/L Troponin I (0.000-0.034) ng/mL Total Protein 6.9 (6.3-8.2) g/dL Albumin 4.0 (3.5-5.0) g/dL Amylase (30-110) U/L Lipase (23-300) U/L HCG, Qual 08/20/24 08/20/24 08/20/24 Range/Units 22:56 22:56 23:44 WBC (3.8-10.6) k/uL RBC (3.80-5.40) m/uL Hgb (11.4-16.0) gm/dL Hct (34.0-46.0) % MCV (80.0-100.0) fL MCH (25.0-35.0) pg MCHC (31.0-37.0) g/dL RDW (11.5-15.5) % Plt Count (150-450) k/uL MPV Neutrophils % % Lymphocytes % % Monocytes % % Eosinophils % % Basophils % % Neutrophils # (1.3-7.7) k/uL Lymphocytes # (1.0-4.8) k/uL Monocytes # (0-1.0) k/uL Eosinophils # (0-0.7) k/uL Basophils # (0-0.2) k/uL D-Dimer (<0.60) mg/L FEU Sodium (137-145) mmol/L Potassium (3.5-5.1) mmol/L Chloride (98-107) mmol/L Carbon Dioxide (22-30) mmol/L Anion Gap mmol/L BUN (7-17) mg/dL Creatinine (0.52-1.04) mg/dL Est GFR (CKD-EPI)AfAm (>60 ml/min/1.73 sqM) Est GFR (CKD-EPI)NonAf (>60 ml/min/1.73 sqM) Glucose (74-99) mg/dL Plasma Lactic Acid [place] 1.4 (0.7-2.0) mmol/L Calcium (8.4-10.2) mg/dL Total Bilirubin (0.2-1.3) mg/dL AST (14-36) U/L ALT (4-34) U/L Alkaline Phosphatase (38-126) U/L Troponin I <0.012 (0.000-0.034) ng/mL Total Protein (6.3-8.2) g/dL Albumin (3.5-5.0) g/dL Amylase 56 (30-110) U/L Lipase 174 (23-300) U/L HCG, Qual Not Detected - Radiology Data Radiology results: report reviewed, image reviewed Disposition Clinical Impression: Biliary colic, Cholelithiases, COVID-19 Disposition: HOME SELF-CARE Instructions (If sedation given, give patient instructions): Biliary Colic (ED ), Gallstones (ED), How to Recover from COVID-19 at Home (ED) Additional Instructions: Return to the emergency department with any new, worsening, or concerning symptoms. Take the Paxlovid as prescribed for 5 days. Take the Tessalon Perles up to every 8 hours as needed for coughing. Take the Toradol with Tylenol as needed for pain relief. If you choose to take the Toradol, do not take any other anti-inflammatories such as ibuprofen, take one or the other. Take the Zofran up to every 8 hours as needed for nausea and vomiting. Try to follow a bland and low-fat diet for the meantime to reduce the risk of pain returning. Contact the general surgery office listed below. Let them know that you were seen in the emergency department for abdominal pain and found to have gallstones. They will schedule you for a follow-up appointment. Prescriptions: Nirmatrelvir/Ritonavir [Paxlovid 300-100 mg Dose Pack] 1 pack PO BID 5 Days #30 tab Benzonatate [Tessalon Perle] 200 mg PO TID PRN #20 capsule PRN Reason: Cough Ketorolac [Toradol] 10 mg PO Q6HR PRN #15 tab PRN Reason: Pain Ondansetron Odt [Zofran Odt] 4 mg PO Q8HR PRN #15 tab PRN Reason: Nausea And Vomiting Is patient prescribed a controlled substance at d/c from ED?: No Referrals: None,Stated [Primary Care Provider] - 1-2 days Sb Matt MD [STAFF PHYSICIAN] - 1-2 days Time of Disposition: 03:27
[2024-08-20] MEDS: SODIUM CHLORIDE 0.9% 1,000 ML IV STA (23:08)
[2024-08-20] MEDS: BENZONATATE 100 MG CAP PO STA (23:08)
[2024-08-20 23:26] LABS: Basophils % (A) 1 %; Eosinophils # (A) 0.4 k/uL (0-0.7); Eosinophils % (A) 5 %; HGB 13.6 gm/dL (11.4-16.0); Lymphocytes % (A) 26 %; MCH 28.7 pg (25.0-35.0); MCHC 34.1 g/dL (31.0-37.0); MCV 84.1 fL (80.0-100.0); Mean Platelet Volume 6.8; Monocytes # (A) 0.5 k/uL (0-1.0); Monocytes % (A) 6 %; Neutrophils # (A) 4.6 k/uL (1.3-7.7); Neutrophils % (A) 61 %; Platelet Count 198 k/uL (150-450); RBC 4.75 m/uL (3.80-5.40); RDW 13.2 % (11.5-15.5); WBC 7.6 k/uL (3.8-10.6)
[2024-08-20 23:37] LABS: HCG,Qualitative Serum Not Detected
[2024-08-20 23:40] LABS: ALT 16 U/L (4-34); African American GFR (CKD) >90 (>60 ml/min/1.73 sqM); Anion Gap 11 mmol/L; Blood Urea Nitrogen 6 mg/dL (7-17); Carbon Dioxide 24 mmol/L (22-30); Chloride 103 mmol/L (98-107); Glucose 173 mg/dL (74-99); Non-African American GFR(CKD) >90 (>60 ml/min/1.73 sqM); Sodium 138 mmol/L (137-145); Total Bilirubin 0.5 mg/dL (0.2-1.3); Total Protein 6.9 g/dL (6.3-8.2)
[2024-08-20 23:44] LABS: AST 29 U/L (14-36); Alkaline Phosphatase 84 U/L (38-126); Potassium 3.8 mmol/L (3.5-5.1)
[2024-08-21 00:35] LABS: Amylase 56 U/L (30-110); Lipase 174 U/L (23-300)
[2024-08-21] MEDS: KETOROLAC 15 MG/ML 1 ML VIAL IVP STA (02:14)
[2024-08-21] MEDS: HYDROmorphone 1 MG/ML 1 ML SYRINGE IVP STA ×2 (02:14→03:44)
--- NOTE | 2024-08-21 02:35 | CT ---
EXAM: CT Angiography Chest With Intravenous Contrast CLINICAL HISTORY: ITS.REASON CT Reason: Right sided chest/abdominal pain, elevated dimer TECHNIQUE: Axial computed tomographic angiography images of the chest with intravenous contrast. CTDI is 30.5 mGy and DLP is 704.1 mGy-cm. This CT exam was performed using one or more of the following dose reduction techniques: automated exposure control, adjustment of the mA and/or kV according to patient size, and/or use of iterative reconstruction technique. MIP reconstructed images were created and reviewed. COMPARISON: No relevant prior studies available. FINDINGS: LUNGS: No focal consolidation, pleural effusion, or pneumothorax. HEART: Within normal limits. VASCULATURE: No acute pulmonary embolism. THYROID: Within normal limits. MEDIASTINUM + LYMPH NODES: Within normal limits. SUPERIOR ABDOMEN: Within normal limits. MUSCULOSKELETAL: Within normal limits. IMPRESSION: No acute pulmonary embolism.
--- NOTE | 2024-08-21 03:16 | US ---
EXAM: US Abdomen Limited, Gallbladder CLINICAL HISTORY: ITS.REASON US Reason: RUQ pain TECHNIQUE: Real-time ultrasound of the right upper quadrant with image documentation. COMPARISON: No relevant prior studies available. FINDINGS: Liver: The liver measures 18.8 cm in length. Increased hepatic echogenicity. Findings can be seen with hepatic steatosis. Gallbladder: Gallbladder wall thickness measures 2 mm. Cholelithiasis within the enlarged gallbladder measuring 12.8 cm in length and 4.2 cm in diameter. No evidence of gallbladder wall thickening or pericholecystic fluid. Please note that some of these findings can be seen with cholecystitis. Consider HIDA imaging if there is further concern. Common bile duct: The common duct measures 4 mm in diameter. No stones. No dilation. Pancreas: Unremarkable as visualized. Right kidney: Unremarkable. No stones. No hydronephrosis. The right kidney measures 11.7 cm in length. IMPRESSION: Cholelithiasis within the enlarged gallbladder measuring 12.8 cm in length and 4.2 cm in diameter. No evidence of gallbladder wall thickening or pericholecystic fluid. Please note that some of these findings can be seen with cholecystitis. Consider HIDA imaging if there is further concern.
[2024-08-21] MEDS: ACET/COD 300 MG/30 MG STARTER PACK 6 TAB BTL PO STA (03:43)
[2024-08-21] MEDS: ONDANSETRON 4 MG/2 ML VIAL IVP STA (03:43)
[2024-08-21 03:52] VITALS: BP 115/76; PULSE 76
== END 2024-08-21 03:50 | disposition home or self-care (01) ==
LOC: EC 22:18
DX: U07.1 COVID-19 (principal); K80.70 Calculus of gallbladder and bile duct without cholecystitis without obstruction; M32.9 Systemic lupus erythematosus, unspecified; F17.200 Nicotine dependence, unspecified, uncomplicated
CPT/HCPCS: 36415; 85379; 80053; 82150; 83690; 84484; 85025; 84703; 76705; 99285; 96374; 96375 ×3; 96376 ×3; 96361 ×4; J2270; J2405; J1885; 71275; 83605

== ENCOUNTER 2024-08-21 16:35 | Inpatient (IN) | payer MEDICARE, OTHER ==
--- NOTE | 2024-08-21 17:34 | ED ---
General Adult HPI - General Chief complaint: Abdominal Pain Stated complaint: Abd pain Time Seen by Provider: 08/21/24 17:00 Source: patient, RN notes reviewed, old records reviewed Mode of arrival: wheelchair Limitations: no limitations - History of Present Illness Initial comments: This is a 33-year-old female who presents to the emergency department from Dr. Matt's office he noted that the ultrasound showed a distended gallbladder though there was no pericholecystic fluid or gallbladder wall thickening patient was having quite a bit of right upper quadrant pain and he wanted to take the gallbladder out and wanted the patient admitted today and have the gallbladder out tomorrow. Patient states yesterday she was seen in the ER on 2 different occasions but initially was not having any abdominal pain and was chest pain and back pain but she returned later with right upper quadrant abdominal pain. Patient denies any fever but is states she is nauseous and continues to have right upper quadrant abdominal pain - Related Data Previous Rx's Medication Instructions Recorded Furosemide [Lasix] 40 mg PO BID #10 tablet 09/05/23 clindamycin HCL 300 mg PO QID 7 Days #28 cap 05/07/24 HYDROcodone/APAP 5-325MG [[place] 5] 1 each PO Q6HR PRN #12 tab 05/10/24 Benzonatate [Tessalon Perle] 200 mg PO TID PRN #20 capsule 08/21/24 Ketorolac [Toradol] 10 mg PO Q6HR PRN #15 tab 08/21/24 Nirmatrelvir/Ritonavir [Paxlovid 1 pack PO BID 5 Days #30 tab 08/21/24 300-100 mg Dose Pack] Ondansetron Odt [Zofran Odt] 4 mg PO Q8HR PRN #15 tab 08/21/24 Allergies Allergy/AdvReac Type Severity Reaction Status Date / Time No Known Allergies Allergy Verified 08/21/24 16:57 Review of Systems ROS Statement: Those systems with pertinent positive or pertinent negative responses have been documented in the HPI. ROS Other: All systems not noted in ROS Statement are negative. Past Medical History Additional Past Medical History / Comment(s): lupus History of Any Multi-Drug Resistant Organisms: None Reported Past Surgical History: Section Past Psychological History: Anxiety, Bipolar, Depression Smoking Status: Current every day smoker Past Alcohol Use History: None Reported Past Drug Use History: None Reported General Exam - General Exam Comments Initial Comments: GENERAL: Patient is well-developed and well-nourished. Patient is nontoxic and well- hydrated and is in mild distress. ENT: Neck is soft and supple. No significant lymphadenopathy is noted. Oropharynx is clear. Moist mucous membranes. Neck has full range of motion without eliciting any pain. EYES: The sclera were anicteric and conjunctiva were pink and moist. Extraocular movements were intact and pupils were equal round and reactive to light. Eye lids were unremarkable. PULMONARY: Unlabored respirations. Good breath sounds bilaterally. No audible rales rhonchi or wheezing was noted. CARDIOVASCULAR: There is a regular rate and rhythm without any murmurs gallops or rubs. ABDOMEN: Mild right upper quadrant abdominal pain SKIN: Skin is clear with no lesions or rashes and otherwise unremarkable. NEUROLOGIC: Patient is alert and oriented x3. Cranial nerves II through XII are grossly intact. Motor and sensory are also intact. Normal speech, volume and content. Symmetrical smile. MUSCULOSKELETAL: Normal extremities with adequate strength and full range of motion. No lower extremity swelling or edema. No calf tenderness. LYMPHATICS: No significant lymphadenopathy is noted PSYCHIATRIC: Normal psychiatric evaluation. Limitations: no limitations Course Vital Signs 08/21/24 16:58 Temperature 98.4 F Pulse Rate 84 Respiratory 18 Rate Blood Pressure 127/84 O2 Sat by Pulse 98 Oximetry Medical Decision Making - Medical Decision Making Was pt. sent in by a medical professional or institution (, PA, [facility], urgent care, hospital, or [facility]...) When possible be specific @ -No Did you speak to anyone other than the patient for history (EMS, parent, family, police, friend...)? What history was obtained from this source @ -No Did you review nursing and triage notes (agree or disagree)? Why? @ -I reviewed and agree with nursing and triage notes Were old charts reviewed (outside hosp., previous admission, EMS record, old EKG, old radiological studies, urgent care reports/EKG's, [facility] records)? Report findings @ -No old charts were reviewed Differential Diagnosis? @ -Differential Abdominal Pain Women: Appendicitis, Cholecystitis, diverticulosis, ischemic bowel, pancreatitis, hepatitis, UTI, gastroenteritis, AAA, incarcerated hernia, bowel obstruction, constipation, inflammatory bowel, hepatitis, peptic ulcer disease, splenic infarction, perforated viscus, vulvitis, ovarian torsion, PID, kidney stone, placenta abruption, this is not meant to be an all-inclusive list EKG interpreted by me (3pts min.). @ -As above X-rays interpreted by me (1pt min.). @ -None done CT interpreted by me (1pt min.). @ -None done U/S interpreted by me (1pt. min.). @ -None done What testing was considered but not performed or refused? (CT, X-rays, U/S, labs)? Why? @ -None What meds were considered but not given or refused? Why? @ -None Did you discuss the management of the patient with other professionals (professionals i.e. , PA, [facility], lab, RT, psych nurse, social media executive, director food and beverage, teacher, chief procurement officer, ed case manager)? Give summary @ -I spoke with Dr. Sánchez on multiple occasions and he agreed to admit the patient admit the patient wrote admitting orders Was smoking cessation discussed for >3mins.? @ -No Was critical care preformed (if so, how long)? @ -No Were there social determinants of health that impacted care today? How? (Homelessness, low income, unemployed, alcoholism, drug addiction, transportation, low edu. Level, literacy, decrease access to med. care, half-way, rehab)? @ -No Was there de-escalation of care discussed even if they declined (Discuss DNR or withdrawal of care, Hospice)? DNR status @ -No What co-morbidities impacted this encounter? (DM, HTN, Smoking, COPD, CAD, Cancer, CVA, ARF, Chemo, Hep., AIDS, mental health diagnosis, sleep apnea, morbid obesity)? @ -None Was patient admitted / discharged? Hospital course, mention meds given and route, prescriptions, significant lab abnormalities, going to OR and other pertinent info. @ -Patient has distended gallbladder Dr. Matt believes this is an early cholecystitis with patient will be admitted. Patient was started on antibiotics pain medicine and nausea medicine in the emergency department. Undiagnosed new problem with uncertain prognosis? @ -No Drug Therapy requiring intensive monitoring for toxicity (Heparin, Nitro, Insulin, Cardizem)? @ -No Were any procedures done? @ -No Diagnosis/symptom? @ -Cholecystitis Acute, or Chronic, or Acute on Chronic? @ -Acute Uncomplicated (without systemic symptoms) or Complicated (systemic symptoms)? @ -Complicated Side effects of treatment? @ -No Exacerbation, Progression, or Severe Exacerbation? @ -No Poses a threat to life or bodily function? How? (Chest pain, [place], [place], pneumonia, PE, COPD, DKA, ARF, appy, cholecystitis, CVA, Diverticulitis, Homicidal, Suicidal, threat to staff... and all critical care pts) @ -Yes this could lead to sepsis and endorgan dysfunction Disposition Clinical Impression: Cholecystitis, COVID-19 Disposition: ADMITTED IP TO THIS HOSP Referrals: None,Stated [Primary Care Provider] - 1-2 days Time of Disposition: 17:34
[2024-08-21] MEDS: ONDANSETRON 4 MG/2 ML VIAL IVP STA (17:43)
[2024-08-21] MEDS: HYDROmorphone 1 MG/ML 1 ML SYRINGE IVP STA ×2 (17:43→19:55)
[2024-08-21 17:49] LABS: African American GFR (CKD) >90 (>60 ml/min/1.73 sqM); Anion Gap 5 mmol/L; Blood Urea Nitrogen 6 mg/dL (7-17); Calcium 8.5 mg/dL (8.4-10.2); Carbon Dioxide 25 mmol/L (22-30); Chloride 105 mmol/L (98-107); Glucose 217 mg/dL (74-99); Non-African American GFR(CKD) >90 (>60 ml/min/1.73 sqM); Sodium 135 mmol/L (137-145); Total Bilirubin 1.1 mg/dL (0.2-1.3)
[2024-08-21 17:59] LABS: ALT 22 U/L (4-34); AST 55 U/L (14-36); Alkaline Phosphatase 39 U/L (38-126); Potassium 5.2 mmol/L (3.5-5.1); Total Protein 6.7 g/dL (6.3-8.2)
[2024-08-21 18:00] LABS: Albumin 3.7 g/dL (3.5-5.0)
[2024-08-21 18:20] LABS: HCT 39.9 % (34.0-46.0); HGB 13.3 gm/dL (11.4-16.0); MCV 84.5 fL (80.0-100.0); RBC 4.72 m/uL (3.80-5.40); WBC 6.5 k/uL (3.8-10.6)
[2024-08-21 18:21] LABS: MCH 28.2 pg (25.0-35.0); MCHC 33.4 g/dL (31.0-37.0); Mean Platelet Volume 10.7; Platelet Count 117 k/uL (150-450); RDW 13.2 % (11.5-15.5)
[2024-08-21] MEDS: PIPERACILLIN-TAZOBACTAM 3.375 GM in SODIUM CHLORIDE 0.9% 100 ML IVPB STA (18:21)
[2024-08-21 18:22] LABS: Basophils % (A) 1 %; Eosinophils # (A) 0.4 k/uL (0-0.7); Eosinophils % (A) 6 %; Lymphocytes # (A) 1.8 k/uL (1.0-4.8); Lymphocytes % (A) 28 %; Monocytes # (A) 0.5 k/uL (0-1.0); Monocytes % (A) 8 %; Neutrophils # (A) 3.6 k/uL (1.3-7.7); Neutrophils % (A) 56 %
[2024-08-21] MEDS: SODIUM CHLORIDE 0.9% 1,000 ML IV ONE (18:22)
[2024-08-21 18:25] LABS: Large Platelets Present
[2024-08-21 18:26] LABS: Polychromasia Present
[2024-08-21] MEDS: KETOROLAC 15 MG/ML 1 ML VIAL IVP SCH (19:54)
[2024-08-22] MEDS: PIPERACILLIN-TAZOBACTAM 3.375 GM in SODIUM CHLORIDE 0.9% 100 ML IVPB SCH (00:35)
[2024-08-22] MEDS: ONDANSETRON 4 MG/2 ML VIAL IVP PRN (00:39)
[2024-08-22] MEDS: traMADol 50 MG TAB PO PRN (00:56)
[2024-08-22] MEDS: traMADol 50 MG TAB PO SCH (00:56)
[2024-08-22 06:27] LABS: Glucose,Whole Blood 254 mg/dL (70-110)
[2024-08-22 08:48] LABS: Basophils % (A) 1 %; Eosinophils # (A) 0.6 k/uL (0-0.7); Eosinophils % (A) 9 %; HCT 37.3 % (34.0-46.0); HGB 12.5 gm/dL (11.4-16.0); Lymphocytes # (A) 2.3 k/uL (1.0-4.8); Lymphocytes % (A) 39 %; MCH 28.5 pg (25.0-35.0); MCHC 33.4 g/dL (31.0-37.0); MCV 85.1 fL (80.0-100.0); Mean Platelet Volume 7.5; Monocytes # (A) 0.3 k/uL (0-1.0); Monocytes % (A) 5 %; Neutrophils # (A) 2.6 k/uL (1.3-7.7); Neutrophils % (A) 44 %; Platelet Count 216 k/uL (150-450); RBC 4.38 m/uL (3.80-5.40); RDW 13.6 % (11.5-15.5)
[2024-08-22 08:58] LABS: ALT 16 U/L (4-34); AST 16 U/L (14-36); African American GFR (CKD) >90 (>60 ml/min/1.73 sqM); Albumin/Globulin Ratio 1.3; Alkaline Phosphatase 84 U/L (38-126); Anion Gap 4 mmol/L; Blood Urea Nitrogen 8 mg/dL (7-17); Calcium 8.1 mg/dL (8.4-10.2); Carbon Dioxide 29 mmol/L (22-30); Chloride 105 mmol/L (98-107); Globulin 2.3 g/dL; Glucose 275 mg/dL (74-99); Non-African American GFR(CKD) >90 (>60 ml/min/1.73 sqM); Potassium 3.7 mmol/L (3.5-5.1); Sodium 138 mmol/L (137-145); Total Bilirubin <0.1 mg/dL (0.2-1.3); Total Protein 5.3 g/dL (6.3-8.2)
[2024-08-22] MEDS ORDERED: DEXTROSE 50% SYRINGE 50 ML IVP PRN ×2 (10:31)
[2024-08-22] MEDS: NIRMATRELVIR PO SCH (11:22)
[2024-08-22] MEDS: RITONAVIR PO SCH (11:22)
[2024-08-22] MEDS: [UNRECOGNIZED DRUG - OTHER] PO SCH (11:22)
[2024-08-22] MEDS: TOPIRAMATE 25 MG TAB PO SCH (11:58)
[2024-08-22] MEDS: ENOXAPARIN 40 MG/0.4 ML SYRINGE SQ SCH (11:59)
[2024-08-22] MEDS: GABAPENTIN 300 MG CAP PO SCH (11:59)
[2024-08-22] MEDS ORDERED: SODIUM CHLORIDE 0.9% 1,000 ML IV SCH (12:00)
[2024-08-22] MEDS: NICOTINE 14MG/24HR PATCH TRANSDERM SCH (12:00)
--- NOTE | 2024-08-22 12:07 | P.CONS ---
History of Present Illness - Reason for Consult Consult date: 08/22/24 Medical management Requesting physician: Sb Matt - Chief Complaint Right abdominal pain - History of Present Illness Dr. Dru Ward not feeling well. I am covering for him This is a pleasant 33-year-old patient follows with Dr. Dru Ward. Patient had a cough for 4 days. No fever no chills. Some upper respiratory congestion. Diagnosed with COVID-19. Also 4 days been having increasing right upper quadrant pain. Some nausea vomiting. No fever no chills. She was sent to the ER by from Dr. Matt's office as ultrasound showed a distended gallbladder there was no pericholecystic fluid or gallbladder wall thickening. Significant pain was present. She had presented to the ER on 2 different occasions. No shortness of breath. No wheezing. Review of systems: GEN.: Tired EYES: None HEENT: Upper respiratory congestion symptoms NECK: None RESPIRATORY: As above] CARDIOVASCULAR: None GASTROINTESTINAL: [As above GENITOURINARY: None MUSCULOSKELETAL: None LYMPHATICS: None HEMATOLOGICAL: None PSYCHIATRY: None NEUROLOGICAL: None Social history: Patient lives with the daughter 17 years of age. Smokes half a pack a day cigarettes. Physical examination: VITAL SIGNS: 98.4, 59, 18, 132 x 77, 95% room air GENERAL: BMI 41.2, laying bed up tired appearing congested sounding. EYES: Pupils equal. Conjunctiva everton l. HEENT: External appearance of nose and ears normal, oral cavity grossly normal. NECK: JVD not raised; masses not palpable. HEART: First and second heart sounds are normal; no edema. LUNGS: Respiratory rate normal; clear to auscultation. ABDOMEN: Soft, right upper quadrant tenderness, some guarding r, liver spleen no t palpable, no masses palpable. PSYCH: [Alert and oriented x3; mood and affect with anxious l. MUSCULOSKELETAL:No Clubbing/cyanosis;muscles-grossly intact NEUROLOGICAL: Cranial nerves grossly intact; no facial asymmetry, power and sensation grossly intact. LYMPHATICS: No lymph nodes palpable in the axilla and neck. INVESTIGATIONS, reviewed in the clinical context: August 22, 2024: White count 6 hemoglobin 12.5 platelets 216 potassium 3.7 creatinine 0.68 blood glucose 275 AST 16 ALT 16 Lab work done through the ER on August 21: Gallbladder ultrasound: Gallstones with enlarged gallbladder measuring 12.8 cm in the length and 4.2 cm diabetic. No bladder wall thickening or cholecystic fluid. Chest CTA: Negative for PE Chest x-ray film personally reviewed by me-unremarkable Assessment plan: -Cholelithiasis. Symptomatic. Patient is having significant right upper quadrant pain for 4 days. Including rather tender. Ultrasound does not show any gallbladder wall thickening or pericholecystic fluid. There is no fever no chills. Is being scheduled by Dr. Matt for surgical intervention. N.p.o. except medications. IV fluids- -Chronic nicotine dependence cigarette smoker Nicotine patch -Diabetes mellitus type 2, chronically on insulin Lantus 15 units. Accu-Cheks with sliding scale. Mounjaro. -Bipolar disorder Topamax. Trazodone. -Morbid obesity BMI 41.2 Weight loss measures -COVID-19 symptoms present for 4 days. No hypoxia. Subcu heparin. Care was discussed with patient. Questions answered. Thank you Dr. Matt Past Medical History Past Medical History: Diabetes Mellitus Additional Past Medical History / Comment(s): lupus, ovarian cysts removed History of Any Multi-Drug Resistant Organisms: None Reported Past Surgical History: Section Past Psychological History: Anxiety, Bipolar, Depression Smoking Status: Current every day smoker Past Alcohol Use History: None Reported Past Drug Use History: None Reported - Past Family History Mother Family Medical History: Diabetes Mellitus, Hyperlipidemia Father Family Medical History: Thyroid Disorder Sister(s) Family Medical History: Thyroid Disorder Medications and Allergies Home Medications Medication Instructions Recorded Confirmed Type Gabapentin [Neurontin] 300 mg PO TID 08/21/24 08/21/24 History INSULIN LISPRO (HumaLOG) [humaLOG] See Protocol SQ ACHS 08/21/24 08/21/24 History Insulin Glargine,Hum.rec.anlog 15 units SQ DAILY 08/21/24 08/21/24 History [Lantus Solostar Pen] Nirmatrelvir/Ritonavir [Paxlovid 1 pack PO BID 5 Days #30 tab 08/21/24 08/21/24 Rx 300-100 mg Dose Pack] Ondansetron Odt [Zofran Odt] 4 mg PO Q8HR PRN #15 tab 08/21/24 08/21/24 Rx Tirzepatide [Mounjaro] 2.5 mg SQ MO 08/21/24 08/21/24 History Topiramate 25 mg PO BID 08/21/24 08/21/24 History traZODone HCL [Trazodone HCl] 300 mg PO HS 08/21/24 08/21/24 History Allergies Allergy/AdvReac Type Severity Reaction Status Date / Time No Known Allergies Allergy Verified 08/21/24 18:27 Physical Exam Vitals: Vital Signs Temp Pulse Pulse Resp BP BP Pulse Ox 08/22/24 07:00 98.4 F 59 L 18 132/77 95 08/22/24 03:26 97.9 F 51 L 16 142/76 97 08/21/24 23:29 98.6 F 63 18 163/92 98 08/21/24 22:59 89 18 119/82 97 08/21/24 19:58 86 18 133/84 98 08/21/24 17:40 77 18 135/80 97 08/21/24 16:58 98.4 F 84 18 127/84 98 Intake and Output 08/21/24 08/22/24 08/22/24 22:59 06:59 14:59 Other: Weight 108.862 kg 108.862 kg Results CBC & Chem 7: 08/22/24 08:37 08/22/24 08:37 Labs: Abnormal Lab Results - Last 24 Hours (Table) 08/21/24 08/21/24 08/22/24 Range/Units 17:31 17:31 06:26 Plt Count 117 L (150-450) k/uL Sodium 135 L (137-145) mmol/L Potassium 5.2 H (3.5-5.1) mmol/L BUN 6 L (7-17) mg/dL Glucose 217 H (74-99) mg/dL POC Glucose (mg/dL) 254 H (70-110) mg/dL Calcium (8.4-10.2) mg/dL Total Bilirubin (0.2-1.3) mg/dL AST 55 H (14-36) U/L Total Protein (6.3-8.2) g/dL Albumin (3.5-5.0) g/dL 08/22/24 Range/Units 08:37 Plt Count (150-450) k/uL Sodium (137-145) mmol/L Potassium (3.5-5.1) mmol/L BUN (7-17) mg/dL Glucose 275 H (74-99) mg/dL POC Glucose (mg/dL) (70-110) mg/dL Calcium 8.1 L (8.4-10.2) mg/dL Total Bilirubin <0.1 L (0.2-1.3) mg/dL AST (14-36) U/L Total Protein 5.3 L (6.3-8.2) g/dL Albumin 3.0 L (3.5-5.0) g/dL
--- NOTE | 2024-08-22 12:12 | P.GSHP ---
History of Present Illness H&P Date: 08/22/24 CHIEF COMPLAINT: Abdominal pain HISTORY OF PRESENT ILLNESS: This is a 33-year-old female who presented with right upper quadrant abdominal pain for the past 4 days. She is coming to the ER twice and had a follow-up visit with Dr. Matt. Her gallbladder ultrasound had reported a very dilated gallbladder and cholelithiasis. She denies any nausea or vomiting. Patient also reports coughing for about 4 days. She was diagnosed with COVID. Patient denies any fever chills or sweats. Past surgical history does include a . PAST MEDICAL HISTORY: Lupus, diabetes mellitus, bipolar, bipolar, depression PAST SURGICAL HISTORY: MEDICATIONS: See below ALLERGIES: See below SOCIAL HISTORY: No illicit drug use. Nicotine dependence REVIEW OF SYSTEMS: CONSTITUTIONAL: Denies fever or chills. HEENT: Denies blurred vision, vision changes, or eye pain. Denies hemoptysis CARDIOVASCULAR: Denies chest pain or pressure. RESPIRATORY: No shortness of breath. GASTROINTESTINAL: See HPI for pertinent findings HEMATOLOGIC: Denies bleeding disorders. GENITOURINARY: Denies any blood in urine or increased urinary frequency. SKIN: Denies pruitis. Denies rash. PHYSICAL EXAM: VITAL SIGNS: Reviewed GENERAL: Well-developed in no acute distress. HEENT: No sclera icterus. Extraocular movements grossly intact. Moist buccal mucosa. Head is atraumatic, normocephalic. No nasal drainage. ABDOMEN: Soft. Nondistended. Tenderness to palpation right upper quadrant. No rebound or guarding noted NEUROLOGIC: Alert and oriented. Cranial nerves II through XII grossly intact. LABORATORY DATA: WBC 6.0 Hgb 12.5 platelets 216 Sodium is 130 potassium 3.7 creatinine 0.68 Total bili 1.1 AST 55 down to 16 ALT 22 alk phos 39 IMAGING: Gallbladder ultrasound reports cholelithiasis with the enlarged gallbladder measuring 12.8 cm in length and 4.2 cm in diameter ASSESSMENT: 1. Cholecystitis with cholelithiasis and enlarged gallbladder 2. COVID positive PLAN: -Patient scheduled for laparoscopic cholecystectomy today with Dr. Matt -Keep patient n.p.o. -Continue IV antibiotics -Continue IV fluids -Continue pain management Physician Special Ed Assistant note has been reviewed by physician. Signing provider agrees with the documented findings, assessment, and plan of care. Past Medical History Past Medical History: Diabetes Mellitus Additional Past Medical History / Comment(s): lupus, ovarian cysts removed History of Any Multi-Drug Resistant Organisms: None Reported Past Surgical History: Section Past Psychological History: Anxiety, Bipolar, Depression Smoking Status: Current every day smoker Past Alcohol Use History: None Reported Past Drug Use History: None Reported - Past Family History Mother Family Medical History: Diabetes Mellitus, Hyperlipidemia Father Family Medical History: Thyroid Disorder Sister(s) Family Medical History: Thyroid Disorder Medications and Allergies Home Medications Medication Instructions Recorded Confirmed Type Gabapentin [Neurontin] 300 mg PO TID 08/21/24 08/21/24 History INSULIN LISPRO (HumaLOG) [humaLOG] See Protocol SQ ACHS 08/21/24 08/21/24 History Insulin Glargine,Hum.rec.anlog 15 units SQ DAILY 08/21/24 08/21/24 History [Lantus Solostar Pen] Nirmatrelvir/Ritonavir [Paxlovid 1 pack PO BID 5 Days #30 tab 08/21/24 08/21/24 Rx 300-100 mg Dose Pack] Ondansetron Odt [Zofran Odt] 4 mg PO Q8HR PRN #15 tab 08/21/24 08/21/24 Rx Tirzepatide [Mounjaro] 2.5 mg SQ MO 08/21/24 08/21/24 History Topiramate 25 mg PO BID 08/21/24 08/21/24 History traZODone HCL [Trazodone HCl] 300 mg PO HS 08/21/24 08/21/24 History Allergies Allergy/AdvReac Type Severity Reaction Status Date / Time No Known Allergies Allergy Verified 08/21/24 18:27 Surgical - Exam Vital Signs Temp Pulse Resp BP Pulse Ox 98.4 F 84 18 127/84 98 08/21/24 16:58 08/21/24 16:58 08/21/24 16:58 08/21/24 16:58 08/21/24 16:58 Results - Labs 08/22/24 08:37 08/22/24 08:37 Abnormal Lab Results - Last 24 Hours (Table) 08/21/24 08/21/24 08/22/24 Range/Units 17:31 17:31 06:26 Plt Count 117 L (150-450) k/uL Sodium 135 L (137-145) mmol/L Potassium 5.2 H (3.5-5.1) mmol/L BUN 6 L (7-17) mg/dL Glucose 217 H (74-99) mg/dL POC Glucose (mg/dL) 254 H (70-110) mg/dL Calcium (8.4-10.2) mg/dL Total Bilirubin (0.2-1.3) mg/dL AST 55 H (14-36) U/L Total Protein (6.3-8.2) g/dL Albumin (3.5-5.0) g/dL 08/22/24 Range/Units 08:37 Plt Count (150-450) k/uL Sodium (137-145) mmol/L Potassium (3.5-5.1) mmol/L BUN (7-17) mg/dL Glucose 275 H (74-99) mg/dL POC Glucose (mg/dL) (70-110) mg/dL Calcium 8.1 L (8.4-10.2) mg/dL Total Bilirubin <0.1 L (0.2-1.3) mg/dL AST (14-36) U/L Total Protein 5.3 L (6.3-8.2) g/dL Albumin 3.0 L (3.5-5.0) g/dL Diabetes panel 08/21/24 08/22/24 Range/Units 17:31 08:37 Sodium 135 L 138 (137-145) mmol/L Potassium 5.2 H 3.7 (3.5-5.1) mmol/L Chloride 105 105 (98-107) mmol/L Carbon Dioxide 25 29 (22-30) mmol/L BUN 6 L 8 (7-17) mg/dL Creatinine 0.57 0.68 (0.52-1.04) mg/dL Glucose 217 H 275 H (74-99) mg/dL Calcium 8.5 8.1 L (8.4-10.2) mg/dL AST 55 H 16 (14-36) U/L ALT 22 16 (4-34) U/L Alkaline Phosphatase 39 84 (38-126) U/L Total Protein 6.7 5.3 L (6.3-8.2) g/dL Albumin 3.7 3.0 L (3.5-5.0) g/dL Calcium panel 08/21/24 08/22/24 Range/Units 17:31 08:37 Calcium 8.5 8.1 L (8.4-10.2) mg/dL Albumin 3.7 3.0 L (3.5-5.0) g/dL Pituitary panel 08/21/24 08/22/24 Range/Units 17:31 08:37 Sodium 135 L 138 (137-145) mmol/L Potassium 5.2 H 3.7 (3.5-5.1) mmol/L Chloride 105 105 (98-107) mmol/L Carbon Dioxide 25 29 (22-30) mmol/L BUN 6 L 8 (7-17) mg/dL Creatinine 0.57 0.68 (0.52-1.04) mg/dL Glucose 217 H 275 H (74-99) mg/dL Calcium 8.5 8.1 L (8.4-10.2) mg/dL Adrenal panel 08/21/24 08/22/24 Range/Units 17:31 08:37 Sodium 135 L 138 (137-145) mmol/L Potassium 5.2 H 3.7 (3.5-5.1) mmol/L Chloride 105 105 (98-107) mmol/L Carbon Dioxide 25 29 (22-30) mmol/L BUN 6 L 8 (7-17) mg/dL Creatinine 0.57 0.68 (0.52-1.04) mg/dL Glucose 217 H 275 H (74-99) mg/dL Calcium 8.5 8.1 L (8.4-10.2) mg/dL Total Bilirubin 1.1 <0.1 L (0.2-1.3) mg/dL AST 55 H 16 (14-36) U/L ALT 22 16 (4-34) U/L Alkaline Phosphatase 39 84 (38-126) U/L Total Protein 6.7 5.3 L (6.3-8.2) g/dL Albumin 3.7 3.0 L (3.5-5.0) g/dL
[2024-08-22 12:28] LABS: Glucose,Whole Blood 152 mg/dL (70-110)
[2024-08-22] MEDS: INSULIN DETEMIR (LEVEMIR) 100 UNIT/ML SYR SQ SCH (12:57)
[2024-08-22] MEDS: INSULIN ASPART (NovoLOG) 100 UNIT/ML VIAL SQ SCH (12:58)
[2024-08-22] MEDS: ZINC SULFATE 220 MG CAP PO SCH (13:04)
[2024-08-22] MEDS: LACTATED RINGERS 1,000 ML IV SCH (13:04)
[2024-08-22] MEDS: LIDOCAINE 1%-EPI 1:100,000 20 ML VIAL SQ ONE ×2 (17:31→18:00)
[2024-08-22] MEDS ORDERED: ROCURONIUM 10 MG/ML (5 ML VIAL) IV ONE (17:32)
[2024-08-22] MEDS ORDERED: MIDAZOLAM 2 MG/2 ML VIAL ONE (17:32)
[2024-08-22] MEDS ORDERED: LIDOCAINE 1% INJ 10MG/ML (20 ML MDV) ONE (17:32)
[2024-08-22] MEDS ORDERED: SUCCINYLCHOLINE CHLORIDE 200 MG/10 ML VIAL IV ONE (17:32)
[2024-08-22] MEDS ORDERED: PROPOFOL 10 MG/ML 20 ML VIAL IV ONE (17:32)
[2024-08-22] MEDS ORDERED: ceFAZolin 1 GM/50 ML BAG (PMX) ONE (17:32)
[2024-08-22] MEDS ORDERED: fentaNYL (PF) 50 MCG/ML 2 ML AMP ONE (17:32)
[2024-08-22] MEDS ORDERED: GLYCOPYRROLATE 0.2 MG/ML 2 ML VIAL ONE (17:32)
[2024-08-22] MEDS ORDERED: HYDROmorphone (PF) 1 MG/ML ONE (17:32)
[2024-08-22] MEDS ORDERED: NEOSTIGMINE 1 MG/ML 10 ML VIAL ONE (17:32)
[2024-08-22] MEDS: LACTATED RINGERS 1,000 ML IV ONE ×3 (17:32→18:55)
[2024-08-22] MEDS: SODIUM CHLORIDE 0.9% 50 ML with ceFAZolin 2,000 MG IV ONE (18:00)
--- NOTE | 2024-08-22 18:20 | P.OP ---
Date of Procedure: 08/22/24 Preoperative Diagnosis: Cholecystitis Postoperative Diagnosis: Cholecystitis Procedure(s) Performed: Laparoscopic cholecystectomy Anesthesia: ALBA Surgeon: Sb Matt Estimated Blood Loss (ml): 5 Pathology: other (Gallbladder) Condition: stable Disposition: PACU Description of Procedure: The patient's placed on the operative table in the supine position. The patient received general endotracheal anesthesia. His abdomen was prepped with sterile fashion. An infraumbilical skin incision was made. The Veress needles positioned into the peritoneal cavity. Position of the Veress needle was confirmed with a positive drop test. The abdomen was then insufflated. After adequate insufflation a 5 mm trochars placed. Cavity. Next the laparoscope placed. Cavity. A 8 mm robotic trocar was placed in the left mid abdomen. A a 8 mm robotic trochars placed in the right lateral position and then the right mid abdomen position. The patient was then placed in reverse Trendelenburg. Patient with was docked to the robot. There were adhesions to the dome of the gallbladder. These were lysed using the hook cautery. The gallbladder fundus was then grasped with a pro-grasp grasper. And then the gallbladder was retracted cephalad. There were adhesions along the body of the gallbladder. These were lysed with sharp dissection. The fundus of the gallbladder was then grasped in the lateral traction was placed in the fundus. And then using blunt and sharp dissection the cystic duct was identified. Using firing applied the cystic duct was identified. A critical view of safety was achieved. The cystic duct was seen entering the common bile duct the common hep atic duct was seen. The cystic duct had been completely dissected and then the cystic duct was clipped and divided. The cystic artery was then identified and then clipped and divided. The gallbladder was then removed from liver bed using left cautery. The gallbladder was placed in a 5 mm Endo Catch bag. The liver bed was hemostasis. There is no bleeding seen. The abdomen was irrigated. No bleeding was seen. The patient was then undocked from the robot. The gallbladder was extracted through the umbilical port site. The umbilical port site was then closed with 0 Ethibond suture. The trochars withdrawn. Skin was closed interrupted 3-0 Monocryl suture. Dermabond dressing applied. Patient top she will was sent to recovery room in stable condition.
[2024-08-22] MEDS ORDERED: ONDANSETRON 4 MG/2 ML VIAL IVP PRN (18:21)
[2024-08-22 19:23] LABS: Glucose,Whole Blood 126 mg/dL (70-110)
[2024-08-22] MEDS: HYDROcodone/APAP 7.5-325MG 1 EACH TAB PO PRN (21:20)
[2024-08-22] MEDS: traZODone HCL 100 MG TAB PO SCH (22:08)
[2024-08-23] MEDS: HYDROmorphone 1 MG/ML 1 ML SYRINGE IVP PRN (05:24)
[2024-08-23 06:23] LABS: Glucose,Whole Blood 155 mg/dL (70-110)
[2024-08-23] MEDS: ENOXAPARIN 40 MG/0.4 ML SYRINGE SQ SCH (08:57)
[2024-08-23 12:07] LABS: Glucose,Whole Blood 251 mg/dL (70-110)
--- NOTE | 2024-08-23 14:58 | P.PN ---
Subjective Progress Note Date: 08/23/24 SURGICAL PROGRESS NOTE CHIEF COMPLAINT: Cholecystitis HISTORY OF PRESENT ILLNESS: Postop day #1 status post laparoscopic cholecystectomy. Patient complains of abdominal pain. She is still requiring IV Dilaudid. She is having flatus. Denies any nausea or vomiting. Denies any difficulty urinating. She does report a cough. Afebrile. PHYSICAL EXAM: VITAL SIGNS: Reviewed. GENERAL: Well-developed in no acute distress. ABDOMEN: Soft. Nondistended. Incision sites clean dry and intact. Tenderness at incision sites. NEUROLOGIC: Alert and oriented. Cranial nerves II through XII grossly intact. ASSESSMENT: 1. Cholecystitis 2. COVID-19 positive PLAN: -Continue pain management -Abdominal binder ordered for support -Encourage patient to increase activity level -Continue antibiotics -DVT prophylaxis Lovenox -Anticipate discharge tomorrow Physician Lead Systems Engineer note has been reviewed by physician. Signing provider agrees with the documented findings, assessment, and plan of care. Objective - Vital Signs Vital signs: Vital Signs Temp 98.3 F 08/23/24 07:30 Pulse 71 08/23/24 07:30 Resp 18 08/23/24 07:30 BP 105/71 08/23/24 07:30 Pulse Ox 93 L 08/23/24 07:30 FiO2 Intake & Output 08/22/24 08/23/24 08/23/24 18:59 06:59 18:59 Intake Total 950 240 Output Total 5 Balance 945 240 Intake: IV 950 Oral 240 Output: Estimated Blood Loss 5 Other: # Voids 1 1 # Bowel Movements 1 - Labs CBC & Chem 7: 08/22/24 08:37 08/22/24 08:37 Labs: Abnormal Lab Results - Last 24 Hours (Table) 08/22/24 08/23/24 08/23/24 Range/Units 19:21 06:22 12:06 POC Glucose (mg/dL) 126 H 155 H 251 H (70-110) mg/dL
[2024-08-23 17:22] LABS: Glucose,Whole Blood 243 mg/dL (70-110)
--- NOTE | 2024-08-23 19:02 | P.PN ---
Progress Note - Text Progress Note Date: 08/23/24 - Chief Complaint Right abdominal pain - History of Present Illness Dr. Dru Ward not feeling well. I am covering for him This is a pleasant 33-year-old patient follows with Dr. Dru Ward. Patient had a cough for 4 days. No fever no chills. Some upper respiratory congestion. Diagnosed with COVID-19. Also 4 days been having increasing right upper quadrant pain. Some nausea vomiting. No fever no chills. She was sent to the ER by from Dr. Matt's office as ultrasound showed a distended gallbladder there was no pericholecystic fluid or gallbladder wall thickening. Significant pain was present. She had presented to the ER on 2 different occasions. No shortness of breath. No wheezing. August 23: Yesterday patient underwent laparoscopic cholecystectomy with Dr Matt. Having symptom abdominal pain. Is passing flatus. On a regular diet. Patient ate a lunch and dinner. Active Medications Hydrocodone Bitart/Acetaminophen (Hydrocodone/Apap 7.5-325mg 1 Each Tab) 1 each PO Q6H PRN PRN Reason: Pain Last Admin: 08/23/24 08:57 Dose: 1 each Dextrose/Water (Dextrose 50% Syringe 50 Ml) 25 ml IVP PER PROTOCOL PRN; Protocol PRN Reason: Hypoglycemia Dextrose/Water (Dextrose 50% Syringe 50 Ml) 50 ml IVP PER PROTOCOL PRN; Protocol PRN Reason: Hypoglycemia Enoxaparin Sodium (Enoxaparin 40 Mg/0.4 Ml Syringe) 40 mg SQ DAILY [facility] Last Admin: 08/23/24 08:57 Dose: 40 mg Gabapentin (Gabapentin 300 Mg Cap) 300 mg PO TID JAMAAL Last Admin: 08/23/24 14:59 Dose: 300 mg Hydromorphone HCl (Hydromorphone 1 Mg/Ml 1 Ml Syringe) 1 mg IVP Q3HR PRN PRN Reason: Pain Last Admin: 08/23/24 14:59 Dose: 1 mg Piperacillin Sod/Tazobactam (Sod 3.375 gm/ Sodium Chloride) 100 mls @ 25 mls/hr IVPB Q8HR JAMAAL; Protocol Last Admin: 08/23/24 14:58 Dose: 25 mls/hr Lactated Ringer's (Lactated Ringers) 1,000 mls @ 100 mls/hr IV .Q10H [facility] Last Admin: 08/23/24 17:40 Dose: 100 mls/hr Insulin Aspart (Insulin Aspart (Novolog) 100 Unit/Ml Vial) 0 unit SQ [facility]; Protocol Last Admin: 08/23/24 17:31 Dose: 4 unit Insulin Detemir (Insulin Detemir (Levemir) 100 Unit/Ml Syr) 15 unit SQ DAILY@0700 [facility] Last Admin: 08/23/24 06:43 Dose: 15 unit Ketorolac Tromethamine (Ketorolac 15 Mg/Ml 1 Ml Vial) 15 mg IVP Q6HR [facility] Stop: 08/26/24 19:40 Last Admin: 08/23/24 17:31 Dose: 15 mg Nicotine (Nicotine 14mg/24hr Patch) 1 patch TRANSDERM DAILY [facility] Last Admin: 08/23/24 08:57 Dose: Not Given Non-Formulary Medication (Tirzepatide [Mounjaro]) 2.5 mg SQ Mo@0900 [facility] Ondansetron HCl (Ondansetron 4 Mg/2 Ml Vial) 4 mg IVP Q6HR PRN PRN Reason: Nausea And Vomiting Last Admin: 08/22/24 08:46 Dose: 4 mg Ondansetron HCl (Ondansetron 4 Mg/2 Ml Vial) 4 mg IVP Q6HR PRN PRN Reason: Nausea And Vomiting Topiramate (Topiramate 25 Mg Tab) 25 mg PO BID [facility] Last Admin: 08/23/24 08:57 Dose: 25 mg Tramadol HCl (Tramadol 50 Mg Tab) 50 mg PO Q6H PRN PRN Reason: Mild to Moderate Pain (1 - 6) Last Admin: 08/22/24 08:46 Dose: 50 mg Trazodone HCl (Trazodone Hcl 100 Mg Tab) 300 mg PO HS [facility] Last Admin: 08/22/24 22:08 Dose: 300 mg Zinc Sulfate (Zinc Sulfate 220 Mg Cap) 220 mg PO DAILY [facility] Last Admin: 08/23/24 08:57 Dose: 220 mg Social history: Patient lives with the daughter 17 years of age. Smokes half a pack a day cigarettes. Physical examination: VITAL SIGNS: 98.5, 72, 16, 108 x 64, 95% room air GENERAL: BMI 41.2, laying bed, not in distress EYES: Pupils equal. Conjunctiva everton l. HEENT: External appearance of nose and ears normal, oral cavity grossly normal. NECK: JVD not raised; masses not palpable. HEART: First and second heart sounds are normal; no edema. LUNGS: Respiratory rate normal; clear to auscultation. ABDOMEN: Soft, some tenderness, liver spleen not palpable, no masses palpable. PSYCH: [Alert and oriented x3; mood and affect with anxious l. INVESTIGATIONS, reviewed in the clinical context: Urine hCG: Not detected August 22, 2024: White count 6 hemoglobin 12.5 platelets 216 potassium 3.7 creatinine 0.68 blood glucose 275 AST 16 ALT 16 Lab work done through the ER on August 21: Gallbladder ultrasound: Gallstones with enlarged gallbladder measuring 12.8 cm in the length and 4.2 cm diabetic. No bladder wall thickening or cholecystic fluid. Chest CTA: Negative for PE Chest x-ray film personally reviewed by me-unremarkable Assessment plan: -Cholelithiasis. Symptomatic. Patient is having significant right upper quadrant pain for 4 days. Including rather tender. Ultrasound does not show any gallbladder wall thickening or pericholecystic fluid. There is no fever no chills. Cholecystectomy on August [address] Matt Tolerating regular diet. DC IV fluids -Chronic nicotine dependence cigarette smoker Nicotine patch -Diabetes mellitus type 2, chronically on insulin Lantus 15 units. Accu-Cheks with sliding scale. Mounjaro. -Bipolar disorder Topamax. Trazodone. -Morbid obesity BMI 41.2 Weight loss measures -COVID-19 symptoms present for 4 days. No hypoxia. Subcu Lovenox Doing well. Continue current medications. DC IV fluids. Increase activity. Thank you Dr. Matt Past Medical History Past Medical History: Diabetes Mellitus Additional Past Medical History / Comment(s): lupus, ovarian cysts removed History of Any Multi-Drug Resistant Organisms: None Reported Past Surgical History: Section Past Psychological History: Anxiety, Bipolar, Depression Smoking Status: Current every day smoker Past Alcohol Use History: None Reported Past Drug Use History: None Reported
[2024-08-23 20:22] LABS: Glucose,Whole Blood 208 mg/dL (70-110)
[2024-08-24 05:51] LABS: Glucose,Whole Blood 200 mg/dL (70-110)
[2024-08-24 07:51] VITALS: BP 124/79; PULSE 69; RESP 16; TEMP 98.6
--- NOTE | 2024-08-24 13:42 | P.DS ---
Providers Date of admission: 08/24/24 06:33 Expected date of discharge: 08/24/24 Attending physician: Sb Matt Consults: 08/21/24 19:10 Consult Physician Urgent Consulting Provider: Dru Ward Consult Reason/Comments: Medical management Do you want consulting provider notified?: Yes Primary care physician: Stated None Hospital Course: Discharge diagnosis 1. Cholecystitis Hospital course This is a 33-year-old female who presented with right upper quadrant abdominal pain for 4 days. Her gallbladder ultrasound had reported dilated gallbladder and cholelithiasis. Patient is status post laparoscopic cholecystectomy for cholecystitis. Patient's pain is controlled. She is tolerating diet. She is having flatus. She has been up and ambulating. She is afebrile. She is stable for discharge. Please refer to chart for any further details. Physician Trust Administrative Assistant note has been reviewed by physician. Signing provider agrees with the documented findings, assessment, and plan of care. Patient Condition at Discharge: Stable Plan - Discharge Summary Discharge Rx Participant: Yes New Discharge Prescriptions: New Docusate [Colace] 100 mg PO BID #30 capsule oxyCODONE HCL [OxyIR] 5 mg PO Q6H PRN 3 Days #12 tab PRN Reason: Pain Nicotine 14Mg/24Hr Patch [Habitrol] 1 patch TRANSDERM DAILY #30 patch Ibuprofen [Motrin] 600 mg PO Q8HR PRN #30 tab PRN Reason: Pain Acetaminophen Tab [Tylenol Tab] 650 mg PO Q4H PRN #30 tablet PRN Reason: Pain Zinc Sulfate [Orazinc] 220 mg PO DAILY #30 cap Continue Insulin Glargine,Hum.rec.anlog [Lantus Solostar Pen] 15 units SQ DAILY Gabapentin [Neurontin] 300 mg PO TID Ondansetron Odt [Zofran ODT] 4 mg PO Q8HR PRN #15 tab PRN Reason: Nausea And Vomiting Topiramate 25 mg PO BID INSULIN LISPRO (HumaLOG) [humaLOG] See Protocol SQ ACHS traZODone HCL 300 mg PO HS Tirzepatide [Mounjaro] 2.5 mg SQ MO Discontinued Nirmatrelvir/Ritonavir [Paxlovid 300-100 mg Dose Pack] 1 pack PO BID 5 Days #30 tab Discharge Medication List Gabapentin [Neurontin] 300 mg PO TID 08/21/24 [History] INSULIN LISPRO (HumaLOG) [humaLOG] See Protocol SQ ACHS 08/21/24 [History] Insulin Glargine,Hum.rec.anlog [Lantus Solostar Pen] 15 units SQ DAILY 08/21/24 [History] Ondansetron Odt [Zofran ODT] 4 mg PO Q8HR PRN #15 tab 08/21/24 [Rx] Tirzepatide [Mounjaro] 2.5 mg SQ MO 08/21/24 [History] Topiramate 25 mg PO BID 08/21/24 [History] traZODone HCL 300 mg PO HS 08/21/24 [History] Acetaminophen Tab [Tylenol Tab] 650 mg PO Q4H PRN #30 tablet 08/24/24 [Rx] Docusate [Colace] 100 mg PO BID #30 capsule 08/24/24 [Rx] Ibuprofen [Motrin] 600 mg PO Q8HR PRN #30 tab 08/24/24 [Rx] Nicotine 14Mg/24Hr Patch [Habitrol] 1 patch TRANSDERM DAILY #30 patch 08/24/24 [Rx] Zinc Sulfate [Orazinc] 220 mg PO DAILY #30 cap 08/24/24 [Rx] oxyCODONE HCL [OxyIR] 5 mg PO Q6H PRN 3 Days #12 tab 08/24/24 [Rx] Follow up Appointment(s)/Referral(s): Dru Ward MD [STAFF PHYSICIAN] - 1 Week Marci Brown MD [STAFF PHYSICIAN] - 10 Days (Lupus) Sb Matt MD [STAFF PHYSICIAN] - 08/30/24 2:45 pm Patient Instructions/Handouts: Cholecystitis (ED), COVID-19 (Coronavirus Disease 2019) (DC) Activity/Diet/Wound Care/Special Instructions: No driving while taking OxyIr No lifting over 10 pounds Shower daily. No soaking or tub baths for 2 weeks Very light activity until you are reevaluated at your follow up appointment with your surgeon Discharge Disposition: HOME SELF-CARE
--- NOTE | 2024-08-24 20:00 | P.PN ---
Progress Note - Text Progress Note Date: 08/24/24 - Chief Complaint Right abdominal pain - History of Present Illness Dr. Dru Ward not feeling well. I am covering for him This is a pleasant 33-year-old patient follows with Dr. Dru Ward. Patient had a cough for 4 days. No fever no chills. Some upper respiratory congestion. Diagnosed with COVID-19. Also 4 days been having increasing right upper quadrant pain. Some nausea vomiting. No fever no chills. She was sent to the ER by from Dr. Matt's office as ultrasound showed a distended gallbladder there was no pericholecystic fluid or gallbladder wall thickening. Significant pain was present. She had presented to the ER on 2 different occasions. No shortness of breath. No wheezing. August 23: Yesterday patient underwent laparoscopic cholecystectomy with Dr Matt. Having symptom abdominal pain. Is passing flatus. On a regular diet. Patient ate a lunch and dinner. August 24: Pain better. He tolerated diet. Had a bowel movement. No nausea vomiting. Social history: Patient lives with the daughter 17 years of age. Smokes half a pack a day cigarettes. Physical examination: VITAL SIGNS: 98.6, 69, 16, 120/79, 97% room air GENERAL: BMI 41.2, laying bed, bit tired EYES: Pupils equal. Conjunctiva everton l. HEENT: External appearance of nose and ears normal, oral cavity grossly normal. NECK: JVD not raised; masses not palpable. HEART: First and second heart sounds are normal; no edema. LUNGS: Respiratory rate normal; clear to auscultation. ABDOMEN: Soft, some tenderness, liver spleen not palpable, no masses palpable. PSYCH: [Alert and oriented x3; mood and affect with anxious l. INVESTIGATIONS, reviewed in the clinical context: Urine hCG: Not detected August 22, 2024: White count 6 hemoglobin 12.5 platelets 216 potassium 3.7 creatinine 0.68 blood glucose 275 AST 16 ALT 16 Lab work done through the ER on August 21: Gallbladder ultrasound: Gallstones with enlarged gallbladder measuring 12.8 cm in the length and 4.2 cm diabetic. No bladder wall thickening or cholecystic fluid. Chest CTA: Negative for PE Chest x-ray film personally reviewed by me-unremarkable Assessment plan: -Cholelithiasis. Symptomatic. Patient is having significant right upper quadrant pain for 4 days. Including rather tender. Ultrasound does not show any gallbladder wall thickening or pericholecystic fluid. There is no fever no chills. Cholecystectomy on August [address] Matt Tolerating regular diet. DC antibiotics -Chronic nicotine dependence cigarette smoker Nicotine patch -Diabetes mellitus type 2, chronically on insulin Lantus 15 units. Accu-Cheks with sliding scale. Mounjaro. -Bipolar disorder Topamax. Trazodone. -Morbid obesity BMI 41.2 Weight loss measures -COVID-19 symptoms present for 4 days. No hypoxia. Subcu Lovenox Stable. Follow-up with Dr. Ward next week upon discharge. Otherwise doing well. Thank you Dr. Matt Past Medical History Past Medical History: Diabetes Mellitus Additional Past Medical History / Comment(s): lupus, ovarian cysts removed History of Any Multi-Drug Resistant Organisms: None Reported Past Surgical History: Section Past Psychological History: Anxiety, Bipolar, Depression Smoking Status: Current every day smoker Past Alcohol Use History: None Reported Past Drug Use History: None Reported
[2024-08-27] MEDS ORDERED: NON FORMULARY DRUG (Tirzepatide [Mounjaro] 2.5 MG/0.5 ML Pen.Injctr) SQ SCH (09:00)
--- NOTE | 2024-08-27 20:24 | CDI ---
Documentation Clarification Form Date: 08/27/2024 From: EITAN Pacheco Admit Date: 08/24/2024 06:33:00 AM Patient Name: Shannan Alvarez Visit Number: [id number] Discharge Date: 08/24/2024 10:37:00 AM ATTENTION: The Clinical Documentation Specialists (CDI) and [facility] Coding Staff appreciate your assistance in clarifying documentation. Please respond to the clarification below the line at the bottom and electronically sign. The CDI & [facility] Coding staff will review the response and follow-up if needed. Please note: Queries are made part of the Legal Health Record. If you have any questions, please contact the author of this message via ITS. Doctor/Provider: Sb Matt The final diagnosis of the pathology report states Chronic and acute cholecystitis with cholelithiasis. Coding guidelines do not allow coding professionals to code based on pathology results; therefore, clarification is requested. History/risk factors: This is a 33-year-old female who presented with right upper quadrant abdominal painfor the past 4 days Clinical Indicators: Her gallbladder ultrasoundhad reported a verydilated gallbladderandcholelithiasis. Treatment: Laparoscopic Cholecystectomy Please clarify if you agree with the pathology report diagnosis of [insert result/diagnosis]: [ x] Yes [ ] No [ ] Other (please specify) [ ] Unable to determine MTDD
== END 2024-08-24 10:37 | disposition home or self-care (01) | DRG 417 ==
LOC: EC 16:35 → 6NMEDSUR 17:36 → OBSVTOIN 08-24 06:33
PROVIDERS: ADMIT Surgery; ATTEND Surgery
PROC: 0FT44ZZ Resection of Gallbladder, Percutaneous Endoscopic Approach (ICD-10-PCS; principal; 2024-08-22 11:20)
DX: K80.12 Calculus of gallbladder with acute and chronic cholecystitis without obstruction (principal); U07.1 COVID-19; E11.9 Type 2 diabetes mellitus without complications; E66.01 Morbid (severe) obesity due to excess calories; F17.210 Nicotine dependence, cigarettes, uncomplicated; M32.9 Systemic lupus erythematosus, unspecified; F31.9 Bipolar disorder, unspecified; Z68.41 Body mass index [BMI] 40.0-44.9, adult; Z79.4 Long term (current) use of insulin; F41.9 Anxiety disorder, unspecified; Z79.899 Other long term (current) drug therapy
CPT/HCPCS: 36415; 80053; 81025; 85025; 88304; 96361; 96365; 96366; 96375; 96376; 99285